=== PATIENT | male | born 1975 | race Two or more races ===

== ENCOUNTER 2022-02-25 05:33 | Emergency (ER) | payer BC, SELFPAY ==
[2022-02-25 05:45] VITALS: BP 144/72; PULSE 98; RESP 24; TEMP 36.8; O2SAT 95; BMI 34.7
[2022-02-25 08:02] VITALS: BP 140/85; PULSE 76; RESP 20; TEMP 36.7; O2SAT 97
--- NOTE | 2022-02-25 09:39 | ED.GENADULT ---
HPI - General Adult General Chief complaint: General Medical Stated complaint: hemmorroids & kidney stones Time Seen by Provider: 02/25/22 09:09 Source: patient Mode of arrival: ambulatory History of Present Illness HPI narrative: 46-year-old male with past medical history of hemorrhoids presenting to the ED complaining of acute on chronic painful hemorrhoids x a few days. Admits went to [facility] yesterday however LWT'd. Reports intermittent bleeding when using the bathroom, not at present. Has been using OTC medications. Denies fever, chills, abdominal pain, nausea, vomiting, hematuria/dysuria Onset (ago): day(s) Related Data Previous Rx's Medication Instructions Recorded hydrocortisone 1 % topical cream 1 appl MS DAILY #28.4 grams 02/25/22 with perineal applicator lidocaine 4 % topical cream 1 appl topical BID PRN pain #28 02/25/22 grams Allergies Allergy/AdvReac Type Severity Reaction Status Date / Time No Known Allergies Allergy Unverified 04/12/20 15:42 Review of Systems Review of Systems: Constitutional: No Fever, No Chills ENT/Mouth: No Ear Pain, No Nasal Congestion, No sore throat, No Rhinorrhea, No Swallowing Difficulty Cardiovascular: No Chest Pain, No SOB Respiratory: No Cough, No Sputum Gastrointestinal: No Nausea, No Vomiting, No Diarrhea, No Constipation, No Abdominal pain Genitourinary: + hemorrhoids, +intrmittent bleeding, No Dysuria, No Urinary Frequency, No Hematuria, No Urinary Incontinence/retention, No Urgency, No Flank Pain Musculoskeletal: No joint pain, No Myalgias Skin: No Skin Lesions, No rash Neuro: No Weakness, No Numbness, No Paresthesias Yes all other systems are reviewed and are negative Constitutional: Constitutional: Reports as per [facility] Past Medical History Attestation statement: The following information was validated with the patient. Social History Social History Advance Directives: No Advance Directives Information Provided: Yes Physical Exam ED Vital Signs: Vital Signs - 24 hr 02/25/22 05:45 02/25/22 08:02 Temperature 98.3 F 98.1 F Pulse Rate 98 76 Respiratory Rate 24 H 20 Blood Pressure 144/72 H 140/85 H Pulse Oximetry 95 97 Oxygen Delivery Method Room Air Room Air BMI result Body Mass Index 34.7 Const General: cooperative, healthy appearing and no acute distress Orientation/consciousness: patient oriented x3 Limitations: no limitations HENMT Head: Yes normal to inspection and Yes atraumatic Ears: hearing grossly normal bilaterally General nose exam: Normal external nose present Face and sinus: Yes normal facial exam Eyes General: appearance normal, both eyes and all related structures EOM: EOMs intact bilaterally Neck Neck: Yes normal visual inspection and Yes no meningeal signs Resp Effort & Inspection: normal respiratory effort and no respiratory distress Auscultation: clear to auscultation bilaterally Cardio Rate: regular rate Heart sounds: S1 normal heart sound present and S2 normal heart sound present GI Inspection: Yes normal to inspection Palpation (GI): Soft to palpation, nontender, no guarding and not rigid Other: + 3 large hemorrhoids noted on rectal exam which appear to be prolapsed internal hemorrhoids. No evidence of thrombosis, cellulitis or bleeding. Tender to palpation. No blood noted on rectal. Skin Rashes: no rashes Wounds: no wounds Neuro General: patient oriented x3, tone normal and no meningeal signs Gait exam (Neuro): Normal gait present Extrem General: Yes normal to inspection Medical Decision Making MDM Narrative Medical decision making narrative: 46-year-old female with a past medical history of anemia, asthma/COPD overlap syndrome, hypogammaglobulinemia, presenting to the ED complaining of asthma exacerbation since this morning. On exam vital signs stable, NAD, nontoxic appearing, physical exam as above with noted prolapsed internal hemorrhoids without evidence of thrombosis or infection Plan: Hydrocortisone/lidocaine, general surgery f/u Medical Records Medical records reviewed: Yes I reviewed the patient's medical records. Lab Data Lab results reviewed: Yes I reviewed the patient's lab results. Discharge Plan Discharge Clinical Impression: Acute hemorrhoid Patient Disposition: Home, Self-Care Instructions: Hemorrhoids (ED), Sitz Bath (DC) Additional Instructions: You have hemorrhoids, topical hydrocortisone cream will help with inflammation, lidocaine will help with pain. Mix 1:1 solution and then apply to her hemorrhoids as prescribed. You need to follow-up with general surgery. You also need to perform Sitz baths at home for symptomatic improvement. If symptoms persist or worsen/pain becomes unbearable return to the emergency department Prescriptions: New hydrocortisone 1 % cream with perineal applicator 1 appl MS DAILY Qty: 28.4 0RF lidocaine 4 % cream 1 appl topical BID PRN (Reason: pain) Qty: 28 0RF Referrals: Soy Ogden MD [Physician] - Stand Alone Forms: Work/School Release Interventions: ED Discharge Assessment Last Done: 02/25/22 09:57 Discharge Date/Time: 02/25/22 09:58
[2022-02-25] MEDS: Ibuprofen 600 MG TABLET PO (09:55)
[2022-02-25] MEDS: Lidocaine 4 % Cream KIT 1 APPL TOPICAL (09:56)
== END 2022-02-25 09:58 | disposition home or self-care (01) ==
PROVIDERS: Emergency Provider Emergency Medicine Emergency Medical Services
DX: K64.8 Other hemorrhoids (principal); J45.901 Unspecified asthma with (acute) exacerbation
CPT/HCPCS: 99283; 99284

== ENCOUNTER 2022-08-20 23:54 | Emergency (ER) | payer BC, SELFPAY ==
[2022-08-21 00:07] VITALS: BP 153/98; PULSE 98; RESP 22; TEMP 37.3; O2SAT 98; BMI 34.9
--- NOTE | 2022-08-21 00:10 | PC.NURSE ---
pt resting on stretcher, appears uncomfortable, pt states he cannot sit or lay comfortably anymore due to his hemmorhoid
[2022-08-21] MEDS: Lidocaine HCl Viscous 2 % 15 ML SOLUTION MUCOUS MEM (00:31)
--- NOTE | 2022-08-21 00:33 | ED_ITS ---
HPI - General Adult General Chief complaint: General Medical Stated complaint: back pain Time Seen by Provider: 08/20/22 23:57 Source: patient Mode of arrival: ambulatory Limitations: no limitations History of Present Illness HPI narrative: This is a 46-year-old male presenting to the emergency department with complaints of rectal pain and lower back pain x3 weeks. Patient reports his rectum is hurting has a history of hemorrhoids and he believes he has a large hemorrhoid to his rectum has tried [id number] medications with no relief. He tells me it is extremely painful particularly to the touch in after he has bowel movements. Tells me sometimes he notes some blood however none today. Patient reporting bilateral lower lumbar pain sparing the midline. Denies saddle paresthesias, weakness, blunt trauma, numbness, tingling, urinary/bowel incontinence/retention, IV drug abuse, steroid use. Patient also denies fevers, chills, chest pain, shortness of breath, nausea, vomiting, abdominal pain. He tells me the rectal pain is debilitating. Related Data Previous Rx's Medication Instructions Recorded hydrocortisone 1 % topical cream 1 appl RI DAILY #28.4 grams 02/25/22 with perineal applicator lidocaine 4 % topical cream 1 appl topical BID PRN pain #28 02/25/22 grams cyclobenzaprine 10 mg tablet 10 mg PO BEDTIME PRN muscle spasm 08/21/22 #7 tabs lidocaine 4 % topical gel 1 appl topical TID PRN pain #30 08/21/22 grams lidocaine 5 % topical patch 1 patch topical DAILY PRN pain #15 08/21/22 ea morphine 15 mg immediate release 15 mg PO Q8H PRN pain #10 tabs 08/21/22 tablet pramoxine 1 % topical foam 1 appl RI BID #15 grams 08/21/22 (Proctofoam) Allergies Allergy/AdvReac Type Severity Reaction Status Date / Time No Known Allergies Allergy Unverified 04/12/20 15:42 Review of Systems Review of Systems: Constitutional : No Weight loss, No Fever, No Chills, ENT/Mouth : No Hearing loss, No Ear Pain, No Nasal Congestion, No Sinus Pain, No Hoarseness, No sore throat, No Rhinorrhea, No Swallowing Difficulty Cardiovascular : No Chest Pain, No SOB Respiratory : No Cough, No Dyspnea Gastrointestinal : No Nausea, No Vomiting, No Diarrhea, No abdominal Pain, No Hematochezia, No Melena, + rectal pain Genitourinary : No Dysuria, No Urinary Frequency, No Hematuria, No Urinary Incontinence, Musculoskeletal : positive back pain Skin : No Skin Lesions, No rash Neuro : No Weakness, No Numbness, No Paresthesias, no loss of bowel or bladder incontinence, no saddle anesthesia Yes all other systems are reviewed and are negative [facility] Past Medical History Attestation statement: The following information was validated with the patient. Source: old records reviewed and nursing notes reviewed Physical Exam ED Vital Signs: Vital Signs - 24 hr 08/21/22 00:07 Temperature 99.2 F Pulse Rate 98 Respiratory Rate 22 H Blood Pressure 153/98 H Pulse Oximetry 98 Oxygen Delivery Method Room Air BMI result Body Mass Index 34.9 vss Appearance: Alert.? Oriented X3.? No acute distress.? Head: Normocephalic, atraumatic, no step-offs or deformities Eyes: Pupils equal, round and reactive to light.? CVS: Normal heart rate and rhythm.? Pulses normal.? Respiratory: No respiratory distress.? Breath sounds normal.? Abdomen: Soft and nontender.? Skin: Skin warm and dry.? Normal skin color.? Normal skin turgor.? Extremities: No lower extremity edema.? No calf ttp. 5/5 strength to bilateral upper and lower extremities Back: No midline tenderness, no C-spine tenderness, full range of motion, no CVA tenderness bilaterally. Bilateral lumbar lower paraspinous muscle tendern ess, no midline tenderness. Rectal exam: Normal sphincter tone, large thrombosed hemorrhoid noted at the to p.m. position painful to the touch, with a bluish hue Neuro: Oriented X 3.? No motor deficit.? No sensory deficit. CN 2-12 intact . No saddle paresthesias. Ambulating with steady gait normal coordination. Course Reevaluation(s) Reevaluation #1: Elliptical incision was made at this site, small blood with possible small blood expressed. This procedure was done by my attending Dr. Aimee martinez/ my assistance, Dr. Adams also helped. Patient reported significant pain. Patient will likely have to see General surgery for this. Will apply topical lidocaine and send him home with the same. Back pain without red flag symptoms, likely muscle spasms to lumbar region. Educated patient on diagnosis and treatment plan, answered all question, patient verbalizes understanding. At this time patient will be discharged home, advised to return with new or worsening symptoms. Educated on worrisome signs and symptoms and when to return. At this time I feel comfortable discharge home. Time: 00:40 Reevaluation #2: This case will be signed out to estuardo Adams, pending re-evaluation and improvement in symptoms. Time: 00:41 Medical Decision Making Medical Decision Making [facility] Narrative: 0036 46-year-old male presents with lower back pain and rectal pain x3 weeks. Physical examination significant for normal sphincter tone, large thrombosed hemorrhoid noted at the to p.m. position painful to the touch, with a bluish hue. He does have bilateral lower lumbar tenderness. No saddle paresthesias, no focal neuro deficits. Normal ambulation. History and physical examination consistent with thrombosed hemorrhoid. Back pain likely muscle spasms. Unlikely cauda equina, epidural abscess, cord compression. Plan at this time is to do an elliptical incision to the hemorrhoid. No need for back imaging at this time, no trauma no focal neuro deficits. Will give morphine for pain, Lidoderm topically. Differential Diagnosis Differential Diagnoses: The differential diagnosis associated with the presentation includes History and physical examination consistent with thrombosed hemorrhoid. Back pain likely muscle spasms. Unlikely cauda equina, epidural abscess, cord compression. Admission/Observation Consideration of admission/observation: Escalation of care including admission/observation considered Consult Healthcare Provider Management of the patient was discussed with: Restaurant Team Member (My attendings Dr. Adams and Dr. Yu ) Prescription Management I considered prescription management with: Pain Medication Core Measures AMI core measures followed: Yes Measure exclusions: not indicated Critical Care Time Critical Care Time Critical Care Time: No Discharge Plan Discharge Clinical Impression: External hemorrhoid, Lumbar back pain Patient Disposition: Home, Self-Care Instructions: Hemorrhoids (ED), Back Pain (ED), Hemorrhoidectomy (DC) Additional Instructions: Take your medications as prescribed. If you were prescribed antibiotics today, it is important that you take your medication to their entirety, do not skip any doses, do not finish them early. Follow-up with your primary care provider this week. Please call general surgery to make an appointment with them as soon as possible. Return to the emergency department with new or worsening symptoms. Such as fevers, chills, chest pain, shortness of breath, nausea, vomiting, dizziness, headache, vision changes, lethargy In case of emergency call 911 Prescriptions: New pramoxine [Proctofoam] 1 % foam 1 appl RI BID Qty: 15 0RF morphine 15 mg tablet 15 mg PO Q8H PRN (Reason: pain) Qty: 10 0RF Rx Instructions: Partial Fill upon patient request. lidocaine 4 % gel 1 appl topical TID PRN (Reason: pain) Qty: 30 0RF cyclobenzaprine 10 mg tablet 10 mg PO BEDTIME PRN (Reason: muscle spasm) Qty: 7 0RF lidocaine 5 % adhesive patch,medicated 1 patch topical DAILY PRN (Reason: pain) Qty: 15 0RF Rx Instructions: leave on most painful area for up to 12 hrs No Action hydrocortisone 1 % cream with perineal applicator 1 appl RI DAILY Qty: 28.4 0RF lidocaine 4 % cream 1 appl topical BID PRN (Reason: pain) Qty: 28 0RF Referrals: [facility] [place] General Surgeons [Provider Group] - 1 day Physician,None [Primary Care Provider] - 2 days Stand Alone Forms: Work/School Release
[2022-08-21] MEDS: Morphine Sulfate 10 MG/ML CARTRIDGE 4 MG IM (00:35)
[2022-08-21] MEDS: Lidocaine HCl 1 % MPF 5 ML VIAL 2 ML SUBCUT ×3 (00:43)
[2022-08-21] MEDS: Lidocaine HCl 2 % Urojet 10 ML JEL.PF.APP TOPICAL (02:19)
[2022-08-21] MEDS: oxyCODONE HCl Immed Release 5 MG TABLET 10 MG PO (02:19)
--- NOTE | 2022-08-21 02:58 | PC.NURSE ---
Late entry: This RN and MD entered room to repeat fixing hemmorhoid. Pt was medicated with urojet lidocaine and injectable lidocaine via MD. (as reflected in the MAR). Pt tolerated procedure fairly, uncomfortable at some points. Pt stated he felt immediate relief once MD was complete. Pt provided with ice pack and abd pad to control bleed.
== END 2022-08-21 03:02 | disposition home or self-care (01) ==
PROVIDERS: Emergency Provider Internal Medicine
DX: K64.4 Residual hemorrhoidal skin tags (principal); M54.50 Low back pain, unspecified; Z79.899 Other long term (current) drug therapy
CPT/HCPCS: 96372; 99283; 99284; J2270

== ENCOUNTER 2022-08-24 23:07 | Emergency (ER) | payer BC, SELFPAY ==
[2022-08-24 23:21] VITALS: BP 136/82; PULSE 117; RESP 20; TEMP 36.8; O2SAT 99; BMI 34.9
--- OUTSIDE RECORDS SUMMARY | 2022-08-24 23:35 | XMS_ITS | Continuity of Care Document ---
:1975 Author Organization [facility] Address [address] [place] [address]- Care Team Providers Name Role Phone Not on Staff, PCP Primary Care Physician Unavailable [place] [facility] [place] 10/07/20 - 10/14/20 [facility] [address], [place] [address] Attending Physician: Hermelinda Chin MD Referring Physician: Kimberley Claudio MD Allergies, Adverse Reactions, Alerts Substance Reaction Severity Status NKA Active Medications ivermectin 3 mg oral tablet See Instructions, 7 tablet By Mouth Once and again in 1-2 weeks., # 14 tablet, 0 Refills, Soft Stop,10/07/20 11:22:00 EDT, [id number], Partial fill upon patient request if the prescription is for a schedule II opioid drug., 172.5, cm, ... Start Date: 10/07/20 Status: Orderedpermethrin 5% topical cream 1 application, Topically, Daily, Apply to skin from head to soles. Leave on 8-10 hours then wash off, # 60 Gm, 2 Refills, Soft Stop, 10/07/20 11:26:00 EDT, Lotion, [id number], Partial fill uponpatient request if the prescription is for a sche... Start Date: 10/07/20 Status: Ordered Vital Signs Most recent to oldest [Reference Range]: 1 Height 172.5 cm (10/07/20 10:58 AM) Weight 103.2 kg (10/07/20 10:58 AM) Oxygen Saturation [94-100 %] 100 % (10/07/20 10:58 AM) Pulse Rate [55-90 bpm] 86 bpm (10/07/20 10:58 AM) Body Mass Index [18.5-24.99] 34.68 *>HHI* (10/07/20 10:58 AM) Blood Pressure [90-138/55-84 mm Hg] 118/73 mm Hg (10/07/20 10:58 AM) Respiratory Rate [16-30 br/min] 17 br/min (10/07/20 10:58 AM) Temperature [96.8-100.4 DegF] 97.1 DegF (10/07/20 10:58 AM) Mode of Delivery (Oxygen) Room air (10/07/20 10:58 AM) Blood pressure sites Arm, right (10/07/20 10:58 AM) Temperature Route Temporal (10/07/20 10:58 AM) Dry Weight 103.2 kg (10/07/20 10:58 AM) Weight Obtained Via Standing scale (10/07/20 10:58 AM) Dry Weight Obtained Via Standing scale (10/07/20 10:58 AM)
--- OUTSIDE RECORDS SUMMARY | 2022-08-24 23:35 | XMS_ITS | Continuity of Care Document ---
:[address] [facility] Address [address] [place] [address]- Care Team Providers Name Role Phone Lesli Frank NP Primary Care Physician Encounter [facility] Date(s): 12/26/20 - 01/25/21 [facility] [address] [place] [address]- Allergies, Adverse Reactions, Alerts Substance Reaction Severity Status NKA Active Medications atorvastatin 40 mg oral tablet 1 tablet = 40 mg, By Mouth, Daily at bedtime, # 30 tablet, 2 Refills, Maintenance, 11/09/20 13:59:00EDT, Tablet, [facility] #[id number], Partial fill upon patient request if the prescription is for a schedule II opioid drug., 172.5, cm, 11/09/20 13:18:00... Start Date: 11/09/20 Status: Ordered Problem List Condition Effective Dates Status Health Status Informant Anemia(Confirmed) Active Dyslipidemia(Confirmed) Active Rash(Confirmed) Active Hx of cocaine abuse(Confirmed) Active Rectal bleeding(Confirmed) Active Snoring(Confirmed) Active Social History Social History Type Response Smoking Status 5-9 cigarettes (between 1/4 to 1/2 pack)/day in last 30 days; Other: started 16yo, quit for about 1.5yrs; entered on: 10/30/20 Sex
--- OUTSIDE RECORDS SUMMARY | 2022-08-24 23:35 | XMS_ITS | Continuity of Care Document ---
:1975 Author Organization [facility] Address [address] [place] [address]- Care Team Providers Name Role Phone Lesli Frank NP Primary Care Physician Encounter [facility] [place] Date(s): 10/21/20 - 11/20/20 [facility] [address], [place] [address] Attending Physician: Mauro Salazar Admitting Physician: AdmtrMauro Referring Physician: AdmtrMauro Allergies, Adverse Reactions, Alerts Substance Reaction Severity Status NKA Active Medications atorvastatin 40 mg oral tablet 1 tablet = 40 mg, By Mouth, Daily at bedtime, # 30 tablet, 2 Refills, Maintenance, 11/09/20 13:59:00EDT, Tablet, [id number], Partial fill upon patient request [...]
--- OUTSIDE RECORDS SUMMARY | 2022-08-24 23:35 | XMS_ITS | Continuity of Care Document ---
:1975 Author Organization [facility] Address [address] [place] [address]- Care Team Providers Name Role Phone Not on Staff, PCP Primary Care Physician Unavailable Encounter [facility] Date(s): 04/28/20 - 05/28/20 [facility] [address] [place] [address]- [facility] Attending Physician: Kimberley Claudio MD Allergies, Adverse Reactions, Alerts Substance Reaction Severity Status NKA Active
--- OUTSIDE RECORDS SUMMARY | 2022-08-24 23:35 | XMS_ITS | Continuity of Care Document ---
:1975 Author Organization [facility] Address [address] [place] [address]- Care Team Providers Name Role Phone Lesli Frank NP Primary Care Physician [place] [facility] [place]21 - 03/07/21 [facility] [address] [place] [address]- Allergies, Adverse Reactions, Alerts Substance Reaction Severity [...]
--- OUTSIDE RECORDS SUMMARY | 2022-08-24 23:35 | XMS_ITS | Continuity of Care Document ---
:1975 Author Organization [facility] Address [address] [place] [address]- Care Team Providers Name Role Phone Lesli Frank NP Primary Care Physician Encounter [facility] [place] Date(s): 02/05/21 - 03/07/21 [facility] [address] [place], [place] [address] Attending Physician: Mauro Salazar Admitting Physician: AdmtrMauro Referring Physician: Admtr, ArJeevan Allergies, Adverse Reactions, Alerts Substance Reaction Severity Status NKA Active Medications atorvastatin 40 mg oral tablet 1 tablet = 40 mg, By Mouth, Daily at bedtime, # 30 tablet, 2 Refills, Maintenance, 11/09/20 13:59:00EDT, Tablet, [facility]/pharmacy #[id number], Partial fill upon patient request if [...]
--- OUTSIDE RECORDS SUMMARY | 2022-08-24 23:35 | XMS_ITS | Continuity of Care Document ---
:1975 Author Organization [facility] Address [address] [place] [address]- Care Team Providers Name Role Phone Lesli Frank NP Primary Care Physician Encounter [facility] [place] Date(s): 11/15/20 - 12/15/20 [facility] [address] [place] [address]- Allergies, Adverse Reactions, Alerts Substance Reaction Severity Status NKA Active Medications atorvastatin 40 mg oral tablet 1 tablet = 40 mg, By Mouth, Daily at bedtime, # 30 tablet, 2 Refills, Maintenance, 11/09/20 13:59:00EDT, Tablet, [facility]/pharmacy #[id number], Partial fill upon patient request [...]
--- OUTSIDE RECORDS SUMMARY | 2022-08-24 23:35 | XMS_ITS | Continuity of Care Document ---
:1975 Author Organization [facility] Address [address] [place] [address]- Care Team Providers Name Role Phone Lesli Frank NP Primary Care Physician Encounter [facility] [place] Date(s): 12/06/20 - 01/05/21 [facility] [address] [place] [address]- Allergies, Adverse Reactions, Alerts Substance Reaction Severity Status NKA Active Medications atorvastatin 40 mg oral tablet 1 tablet = 40 mg, By Mouth, Daily at bedtime, # 30 tablet, 2 Refills, Maintenance, 11/09/20 13:59:00EDT, Tablet, [facility]/pharmacy #[id number], Partial fill upon patient request if [...]
--- OUTSIDE RECORDS SUMMARY | 2022-08-24 23:35 | XMS_ITS | Continuity of Care Document ---
:1975 Author Organization [facility] Address [address] [place] [address]- Care Team Providers Name Role Phone Lesli Frank NP Primary Care Physician Encounter [facility] [place] Date(s): 12/23/20 - 01/22/21 [facility] [address] [place] [address]- Allergies, Adverse Reactions, Alerts Substance Reaction Severity Status NKA Active Medications atorvastatin 40 mg oral tablet 1 tablet = 40 mg, By Mouth, Daily at bedtime, # 30 tablet, 2 Refills, Maintenance, 11/09/20 13:59:00EDT, Tablet, [facility]/pharmacy #[id number], Partial fill upon patient request if [...]
--- OUTSIDE RECORDS SUMMARY | 2022-08-24 23:35 | XMS_ITS | Continuity of Care Document ---
:1975 Author Organization [facility] Address [address] [place] [address]- Care Team Providers Name Role Phone Lesli Frank NP Primary Care Physician [place] [facility] [place]): [place] 12/09/20 [facility] [address] [place] [address]- Attending Physician: Admtr, Mauro Admitting Physician: Admtr, Ar8 Referring Physician: Admtr, Ar8 Allergies, Adverse Reactions, Alerts Substance Reaction Severity [...]
--- OUTSIDE RECORDS SUMMARY | 2022-08-24 23:35 | XMS_ITS | Continuity of Care Document ---
:1975 Author Organization [facility] Address [address] [place] [address]- Care Team Providers Name Role Phone Not on Staff, PCP Primary Care Physician Unavailable Encounter [facility] [place] Date(s): 05/13/20 - 05/20/20 [facility] [address] [place] [address]- [facility] Attending Physician: Kimberley Claudio MD Allergies, Adverse Reactions, Alerts Substance Reaction Severity Status NKA Active Medications nystatin-triamcinolone topical 187913 u/gm-0.1% cream 1 application, Topically, 2 times a day, for 14 days, apply to affected skin, # 30 Gm, 0 Refills, Acute 05/27/20 12:25:00 EST, 05/13/20 12:25:00 EDT, [id number], 1 application Topically 2 timesa day,x14 days,Instr:apply to affected skin, 172.... Start Date: 05/13/20 Stop Date: 05/27/20 Status: Ordered Vital Signs Most recent to oldest [Reference Range]: 1 Height 172.5 cm (05/13/20 12:15 PM) Oxygen Saturation [94-100 %] 100 % (05/13/20 12:15 PM) Pulse Rate [55-90 bpm] 77 bpm (05/13/20 12:15 PM) Blood Pressure [90-138/55-84 mm Hg] 112/68 mm Hg (05/13/20 12:15 PM) Respiratory Rate [16-30 br/min] 20 br/min (05/13/20 12:15 PM) Temperature [96.8-100.4 DegF] 97.3 DegF (05/13/20 12:15 PM) Mode of Delivery (Oxygen) Room air (05/13/20 12:15 PM) Blood pressure sites Arm, right (05/13/20 12:15 PM) Temperature Route Temporal (05/13/20 12:15 PM)
--- OUTSIDE RECORDS SUMMARY | 2022-08-24 23:35 | XMS_ITS | Continuity of Care Document ---
:1975 Author Organization [facility] Address [address] [place] [address]- Care Team Providers Name Role Phone Not on Staff, PCP Primary Care Physician Unavailable En[place] [facility] [place](s): 10/21/20 - 10/28/20 [facility] [address], [place] [address] Encounter Diagnosis Rash and nonspecific skin eruption (Discharge Diagnosis) - 10/21/20 Attending Physician: Kimberley Claudio MD Allergies, Adverse Reactions, Alerts Substance Reaction Severity Status NKA Active Medications hydrocortisone 1% topical cream 1 application, Topically, 2 times a day, for 14 days, # 60 Gm, 0 Refills, Acute 11/04/20 15:22:00 EDT, 10/21/20 15:22:00 EDT, Cream, [id number], Partial fill upon patient request if the prescription is for a schedule II opioid drug., 1 applica... Start Date: 10/21/20 Stop Date: 11/04/20 Status: Orderedivermectin 3 mg oral tablet See Instructions, 7 tablet By Mouth Once and again in 1-2 weeks., # 14 tablet, 0 Refills, Soft Stop,10/07/20 11:22:00 EDT, [id number], Partial fill upon patient request if the prescription is for a schedule II opioid drug., 172.5, cm, 10/07/2... Start Date: 10/07/20 Status: Orderedpermethrin 5% topical cream 1 application, Topically, Daily, Apply to skin from head to soles. Leave on 8-10 hours then wash off, # 60 Gm, 2 Refills, Soft Stop, 10/07/20 11:26:00 EDT, Lotion, [id number], Partial fill uponpatient request if the prescription is for a sche... Start Date: 10/07/20 Status: Ordered Problem List Diagnosis Diagnosis Type Effective Dates Health Clinical Infor mant Status Service Rash and Discharge 10/21/20 nonspecific skin Diagnosis eruption Vital Signs Most recent to oldest [Reference Range]: 1 Height 172.5 cm (10/21/20 1:49 PM) Oxygen Saturation [94-100 %] 99 % (10/21/20 1:49 PM) Pulse Rate [55-90 bpm] 76 bpm (10/21/20 1:49 PM) Blood Pressure [90-138/55-84 mm Hg] 116/72 mm Hg (10/21/20 1:49 PM) Respiratory Rate [16-30 br/min] 18 br/min (10/21/20 1:49 PM) Temperature [96.8-100.4 DegF] 98.4 DegF (10/21/20 1:49 PM) Mode of Delivery (Oxygen) Room air (10/21/20 1:49 PM) Blood pressure sites Arm, right (10/21/20 1:49 PM) Temperature Route Temporal (10/21/20 1:49 PM)
--- OUTSIDE RECORDS SUMMARY | 2022-08-24 23:35 | XMS_ITS | Continuity of Care Document ---
:1975 Author Organization [facility] Address [address] [place] [address]- Care Team Providers Name Role Phone Lesli Frank NP Primary Care Physician [place] [facility] [place] 12/23/20 - 01/22/21 [facility] [address] [place] [address]- Allergies, Adverse Reactions, Alerts Substance Reaction Severity Status NKA Active Medications atorvastatin 40 mg oral tablet 1 tablet = 40 mg, By Mouth, Daily at bedtime, # 30 tablet, 2 Refills, Maintenance, 11/09/20 13:59:00EDT, Tablet, [facility]/pharm[facility] #[id number], Partial fill upon patient request if [...]
--- OUTSIDE RECORDS SUMMARY | 2022-08-24 23:35 | XMS_ITS | Continuity of Care Document ---
:1975 Author Organization [facility] Address [address] [place] [address]- Care Team Providers Name Role Phone Lesli Frank NP Primary Care Physician Encounter [facility] Date(s): 12/26/20 - 01/25/21 [facility] [address] [place] [address]- Allergies, Adverse Reactions, Alerts Substance Reaction Severity [...]
--- OUTSIDE RECORDS SUMMARY | 2022-08-24 23:35 | XMS_ITS | Continuity of Care Document ---
:1975 Author Organization [facility] Address [address] [place] [address]- Care Team Providers Name Role Phone Lesli Frank NP Primary Care Physician Encounter [facility] Date(s): 10/11/20 - 11/10/[address] [address] Allergies, Adverse Reactions, Alerts Substance Reaction Severity Status NKA Active Medications atorvastatin 40 mg oral tablet 1 tablet = 40 mg, By Mouth, Daily at bedtime, # 30 tablet, 2 Refills, Maintenance, 11/09/20 13:59:00EDT, Tablet, [facility]/pharmacy #[id number], Partial fill upon patient request if the prescription is for a schedule II opioid drug., 172.5, cm, 11/09/20 13:18:00... Start Date: 11/09/20 Status: Ordered Problem List Condition Effective Dates Status Health Status Informant Anemia(Confirmed) Active Rash(Confirmed) Active Hx of cocaine abuse(Confirmed) Active Rectal bleeding(Confirmed) Active Social History Social History Type Response Smoking Status 5-9 cigarettes (between 1/4 to 1/2 pack)/day in last 30 days; Other: started 16yo, quit for about 1.5yrs; entered on: 10/30/20 Sex
--- OUTSIDE RECORDS SUMMARY | 2022-08-24 23:35 | XMS_ITS | Continuity of Care Document ---
:1975 Author Organization [facility] Address [address] [place] [address]- Care Team Providers Name Role Phone Lesli Frank NP Primary Care Physician Encounter [facility] Date(s): 10/09/20 - 11/08/20 [facility] [address] [place], [place] [address] Allergies, Adverse Reactions, Alerts Substance Reaction Severity Status NKA Active Problem List Condition Effective Dates Status Health Status Informant Anemia(Confirmed) Active Rash(Confirmed) Active Hx of cocaine abuse(Confirmed) Active Rectal bleeding(Confirmed) Active Social History Social History Type Response Smoking Status 5-9 cigarettes (between 1/4 to 1/2 pack)/day in last 30 days; Other: started 16yo, quit for about 1.5yrs; entered on: 10/30/20 Sex
--- OUTSIDE RECORDS SUMMARY | 2022-08-24 23:35 | XMS_ITS | Continuity of Care Document ---
:1975 Author Organization [facility] Address [address] [place] [address]- Care Team Providers Name Role Phone Lesli Frank NP Primary Care Physician [id number] Date(s): 11/09/20 - 11/16/20 [facility] [address] [place] [address]- Encounter Diagnosis Well adult exam (Discharge Diagnosis) - 11/11/20 Dyslipidemia (Discharge Diagnosis) - 11/11/20 Anemia (Discharge Diagnosis) - 11/11/20 Rash (Discharge Diagnosis) - 11/11/20 Rectal bleeding (Discharge Diagnosis) - 11/11/20 Snoring (Discharge Diagnosis) - 11/11/20 Elevated blood sugar (Discharge Diagnosis) - 11/11/20 Attending Physician: Lesli Frank NP Referring Physician: Nino Priest MD Allergies, Adverse Reactions, Alerts Substance Reaction Severity Status NKA Active Medications atorvastatin 40 mg oral tablet 1 tablet = 40 mg, By Mouth, Daily at bedtime, # 30 tablet, 2 Refills, Maintenance, 11/09/20 13:59:00EDT, Tablet, [facility]/pharmacy #[id number], Partial fill upon patient request if the prescription is for a schedule II opioid drug., 172.5, cm, 11/09/20 13:18:00... Start Date: 11/09/20 Status: Ordered Problem List Condition Effective Dates Status Health Status Informant Anemia(Confirmed) Active Dyslipidemia(Confirmed) Active Rash(Confirmed) Active Hx of cocaine abuse(Confirmed) Active Rectal bleeding(Confirmed) Active Snoring(Confirmed) Active Diagnosis Diagnosis Type Effective Dates Health Clinical Infor mant Status Service Well adult exam Discharge 11/11/20 Diagnosis Dyslipidemia Discharge 11/11/20 Diagnosis Anemia Discharge 11/11/20 Diagnosis Rash Discharge 11/11/20 Diagnosis Rectal bleeding Discharge 11/11/20 Diagnosis Snoring Discharge 11/11/20 Diagnosis Elevated blood Discharge 11/11/20 sugar Diagnosis Vital Signs Most recent to oldest [Reference Range]: 1 Height 172.5 cm (11/09/20 1:18 PM) Weight 103.7 kg (11/09/20 1:18 PM) Oxygen Saturation [94-100 %] 98 % (11/09/20 1:18 PM) Pulse Rate [55-90 bpm] 78 bpm (11/09/20 1:18 PM) Body Mass Index [18.5-24.99] 34.85 *>HHI* (11/09/20 1:18 PM) Blood Pressure [90-138/55-84 mm Hg] 110/72 mm Hg (11/09/20 1:18 PM) Temperature [96.8-100.4 DegF] 98.0 DegF (11/09/20 1:18 PM) Blood pressure sites Arm, right (11/09/20 1:18 PM) Temperature Route Oral (11/09/20 1:18 PM) Weight Obtained Via Standing scale (11/09/20 1:18 PM) Social History Social History Type Response Smoking Status 5-9 cigarettes (between 1/4 to 1/2 pack)/day in last 30 days; Other: started 16yo, quit for about 1.5yrs; entered on: 10/30/20 Sex
--- OUTSIDE RECORDS SUMMARY | 2022-08-24 23:35 | XMS_ITS | Continuity of Care Document ---
:1975 Author Organization [facility] Address [address] [place] [address]- Care Team Providers Name Role Phone Lesli Frank NP Primary Care Physician Encounter [facility] [place] Date(s): 02/05/21 - 02/12/21 [facility] [address] [place], [place] [address] Encounter Diagnosis Foreign body of left eye (Discharge Diagnosis) - 02/05/21 Attending Physician: Kimberley Claudio MD Referring Physician: Lesli Frank NP Allergies, Adverse Reactions, Alerts Substance Reaction Severity Status NKA Active Medications atorvastatin 40 mg oral tablet 1 tablet = 40 mg, By Mouth, Daily at bedtime, # 30 tablet, 2 Refills, Maintenance, 11/09/20 13:59:00EDT, Tablet, [facility]/pharmacy #[id number], Partial fill upon patient request if the prescription is for a schedule II opioid drug., 172.5, cm, 11/09/20 13:18:00... Start Date: 11/09/20 Status: Ordered Problem List Condition Effective Dates Status Health Status Informant Anemia(Confirmed) Active Dyslipidemia(Confirmed) Active Rash(Confirmed) Active Hx of cocaine abuse(Confirmed) Active Rectal bleeding(Confirmed) Active Snoring(Confirmed) Active Diagnosis Diagnosis Type Effective Dates Health Status Clinical In formant Service Foreign body of Discharge 02/05/21 left eye Diagnosis Vital Signs Most recent to oldest [Reference Range]: 1 Height 172.5 cm (02/05/21 4:14 PM) Weight 102.4 kg (02/05/21 4:14 PM) Oxygen Saturation [94-100 %] 100 % (02/05/21 4:14 PM) Pulse Rate [55-90 bpm] 76 bpm (02/05/21 4:14 PM) Body Mass Index [18.5-24.99] 34.41 *>HHI* (02/05/21 4:14 PM) Blood Pressure [90-138/55-84 mm Hg] 119/75 mm Hg (02/05/21 4:14 PM) Temperature [96.8-100.4 DegF] 97.1 DegF (02/05/21 4:14 PM) Mode of Delivery (Oxygen) Room air (02/05/21 4:14 PM) Blood pressure sites Arm, right (02/05/21 4:14 PM) Temperature Route Temporal (02/05/21 4:14 PM) Dry Weight 102.4 kg (02/05/21 4:14 PM) Weight Obtained Via Standing scale (02/05/21 4:14 PM) Dry Weight Obtained Via Standing scale (02/05/21 4:14 PM) Social History Social History Type Response Smoking Status 5-9 cigarettes (between 1/4 to 1/2 pack)/day in last 30 days; Other: started 16yo, quit for about 1.5yrs; entered on: 10/30/20 Sex
--- OUTSIDE RECORDS SUMMARY | 2022-08-24 23:35 | XMS_ITS | Continuity of Care Document ---
:1975 Author Organization [facility] Address [address] [place] [address]- Care Team Providers Name Role Phone Lesli Frank NP Primary Care Physician [place] [facility] [place] 10[place]20 - 11/06/20 [facility] [address], [place] [address] Encounter Diagnosis Initial patient encounter (Discharge Diagnosis) - 10/30/20 Rash (Discharge Diagnosis) - 10/30/20 Hx of cocaine abuse (Discharge Diagnosis) - 10/30/20 Anemia (Discharge Diagnosis) - 11/01/20 Rectal bleeding (Discharge Diagnosis) - 11/01/20 Attending Physician: Lesli Frank NP Allergies, Adverse Reactions, Alerts Substance Reaction Severity Status NKA Active Medications No Known Medications Problem List Condition Effective Dates Status Health Status Informant Anemia(Confirmed) Active Rash(Confirmed) Active Hx of cocaine abuse(Confirmed) Active Rectal bleeding(Confirmed) Active Diagnosis Diagnosis Type Effective Dates Health Status Clinical In formant Service Initial patient Discharge 10/30/20 encounter Diagnosis Rash Discharge 10/30/20 Diagnosis Hx of cocaine Discharge 10/30/20 abuse Diagnosis Anemia Discharge 11/01/20 Diagnosis Rectal bleeding Discharge 11/01/20 Diagnosis Procedures Procedure Date Related Diagnosis Body Site Status History of kidney stone1 Com pleted 1Procedure to break up Vital Signs Most recent to oldest [Reference Range]: 1 Height 172.5 cm (10/30/20 10:27 AM) Social History Social History Type Response Smoking Status 5-9 cigarettes (between 1/4 to 1/2 pack)/day in last 30 days; Other: started 16yo, quit for about 1.5yrs; entered on: 10/30/20 Sex
--- NOTE | 2022-08-25 00:16 | ED_ITS ---
HPI - Male Genitourinary General Chief complaint: General Medical Stated complaint: lower back pain Time Seen by Provider: 08/25/22 00:11 Source: patient Mode of arrival: ambulatory Limitations: no limitations History of Present Illness HPI Narrative: Patient with external hemorrhoids was seen here on 08/21 for pain incision was made comes back as patient is still having pain in the hemorrhoid area patient is supposed to see a surgeon next week Related Data Previous Rx's Medication Instructions Recorded hydrocortisone 1 % topical cream 1 appl VA DAILY #28.4 grams 02/25/22 with perineal applicator lidocaine 4 % topical cream 1 appl topical BID PRN pain #28 02/25/22 grams cyclobenzaprine 10 mg tablet 10 mg PO BEDTIME PRN muscle spasm 08/21/22 #7 tabs lidocaine 4 % topical gel 1 appl topical TID PRN pain #30 08/21/22 grams lidocaine 5 % topical patch 1 patch topical DAILY PRN pain #15 08/21/22 ea morphine 15 mg immediate release 15 mg PO Q8H PRN pain #10 tabs 08/21/22 tablet pramoxine 1 % topical foam 1 appl VA BID #15 grams 08/21/22 (Proctofoam) morphine 15 mg immediate release 15 mg PO Q8H PRN pain #10 tabs 08/25/22 tablet Allergies Allergy/AdvReac Type Severity Reaction Status Date / Time No Known Allergies Allergy Unverified 04/12/20 15:42 Review of Systems Review of Systems: Yes all other systems are reviewed and are negative [facility] Social History Social History Advance Directives: No Physical Exam Vital Signs: Vital Signs: Last Vital Signs Temp 98.2 F 08/24/22 23:21 Pulse 117 H 08/24/22 23:21 Resp 20 08/24/22 23:21 BP 136/82 08/24/22 23:21 Pulse Ox 99 08/24/22 23:21 O2 Del Method 08/24/22 23:21 BMI result Body Mass Index 34.9 Appearance: Alert. Oriented X3. Eyes: PERRLA, No Nystagmus ENT: Pharynx normal. Oral Mucosa moist Neck: Normal inspection. Neck supple. CVS: Normal heart rate and rhythm. Pulses normal. Respiratory: No respiratory distress. Abdomen: Soft and nontender. Bowel sounds are present, rectum; external prolapsed hemorrhoid tender thrombosed at 03:00 o'clock Skin: Skin warm and dry. Normal skin color. Normal skin turgor. Neuro: Oriented X 3. Procedures Procedure Narrative Procedure Narrative: Hemorrhoid thrombectomy: Small thrombus was palpated at 03:00 o'clock position elliptical incision was made after hemorrhoid was infiltrated with 2% lidocaine 4 cc was used no significant clot was removed patient felt better after the incision Discharge Plan Discharge Clinical Impression: External hemorrhoid, thrombosed Patient Disposition: Home, Self-Care Instructions: Hemorrhoids (ED) Additional Instructions: Continue to use suppository as prescribed and follow-up with surgeon as scheduled Pain medicine as prescribed Prescriptions: New morphine 15 mg tablet 15 mg PO Q8H PRN (Reason: pain) Qty: 10 0RF Rx Instructions: Partial Fill upon patient request. No Action pramoxine [Proctofoam] 1 % foam 1 appl VA BID Qty: 15 0RF morphine 15 mg tablet 15 mg PO Q8H PRN (Reason: pain) Qty: 10 0RF Rx Instructions: Partial Fill upon patient request. lidocaine 4 % gel 1 appl topical TID PRN (Reason: pain) Qty: 30 0RF cyclobenzaprine 10 mg tablet 10 mg PO BEDTIME PRN (Reason: muscle spasm) Qty: 7 0RF lidocaine 5 % adhesive patch,medicated 1 patch topical DAILY PRN (Reason: pain) Qty: 15 0RF Rx Instructions: leave on most painful area for up to 12 hrs hydrocortisone 1 % cream with perineal applicator 1 appl VA DAILY Qty: 28.4 0RF lidocaine 4 % cream 1 appl topical BID PRN (Reason: pain) Qty: 28 0RF
[2022-08-25] MEDS: Lidocaine HCl 2 % MPF 5 ML VIAL INFILTRATI (00:48)
[2022-08-25] MEDS: oxyCODONE HCl Immed Release 5 MG TABLET PO (00:51)
== END 2022-08-25 00:56 | disposition home or self-care (01) ==
PROVIDERS: Emergency Provider Internal Medicine
DX: K64.4 Residual hemorrhoidal skin tags (principal); M54.50 Low back pain, unspecified; Z79.899 Other long term (current) drug therapy
CPT/HCPCS: 99283

== ENCOUNTER → 2022-08-28 15:30 | Outpatient (BNVA) | payer BC, SELFPAY | PROVIDERS: Visit Provider Surgery | DX: K62.89 Other specified diseases of anus and rectum (principal); K64.4 Residual hemorrhoidal skin tags | CPT/HCPCS: 46600 ==

== ENCOUNTER 2022-09-05 10:46 | Day surgery (SDC) | payer BC, SELFPAY ==
[2022-09-05] VITALS (33 sets, daily range): BP systolic 124–183; BP diastolic 54–118; PULSE 80–120; RESP 16–22; TEMP 36.4–36.9; O2SAT 94–100; BMI 33.4
--- NOTE | 2022-09-05 11:17 | HO.ANESPROP2 ---
[facility] Active Problems Active Problems: All Active Problems (Updated 08/28/22 @ 15:54 by Soy Ogden MD) External hemorrhoids with complication (Acute) Anal pain (Acute) Past Medical History Medical History (Updated 08/28/22 @ 15:54 by Soy Ogden MD) Anal pain External hemorrhoids with complication Family History Family history of problems with anesthesia: No Surgical History History of Problems with Anesthesia: No Social History Social History (Updated 08/28/22 @ 15:43 by BRE Zamora) Alcohol intake: current Alcohol intake frequency: holidays/special occasions only Patient Tobacco Use Status: Current everyday Tobacco user Tobacco use type: Cigarette Cigarettes Per Day: 10 Are you DNR?: No Advance Directives: No Advance Directives Information Provided: Yes Meds Allergies Allergy/AdvReac Type Severity Reaction Status Date / Time No Known Allergies Allergy Unverified 08/28/22 15:41 Active Medications: Current Medications Lactated Ringer's (Lr) 1,000 mls @ 50 mls/hr IVCONT .Q20H [facility] Home Medications Medication Instructions Recorded Confirmed Last Taken Type ibuprofen 600 mg tablet 1 tab PO Q6H PRN Pain 09/05/22 09/05/22 09/02/22 History Exam Exam Date and Time: September 05, 2022 1117 Height,Weight and Vital Signs: Height 5 ft 8 in Weight 99.79 kg Last Vital Signs Temp 98.3 F 09/05/22 11:03 Pulse 92 09/05/22 11:03 Resp 18 09/05/22 11:03 BP 150/100 H 09/05/22 11:03 Pulse Ox 99 09/05/22 11:03 O2 Del Method 09/05/22 11:03 Airway Mallampati Class: II TM Dist: >3cm Neck ROM: Full Heart: rrr Lungs: cta Assessment and Plan Assessment Anesthesia Assessment: Anesthesia Plan Discussed and Chart Reviewed Final Anesthetic Review Family History of Problems with Anesthesia: No History of Problems with Anesthesia: No NPO: Yes ASA Class: II Final Preanesthetic Review: No Changes in Pt Med Stat, Meds/Allgs Chart Reviewed and Consent Obtained/Reviewed Patient Risk: Intermediate Procedure Risk: Intermediate Anesthetic Plan Anesthetic Plan: GA Disposition: Standard PACU
[2022-09-05] MEDS: Lactated Ringers 1,000 ML 50 ML IVCONT ×2 (11:26→18:32)
--- NOTE | 2022-09-05 12:26 | MHC.SHP ---
Pre-Procedural Eval Section A Date of Service: 09/05/22 The patient is an INPATIENT: No Changes since office visit: No Cold of Flu in the past 2 weeks, No New Medical Problems, No Changes in Medication and No Patient answered all questions The History & Physical has been completed within 30 days and I have reviewed it.: Yes Section B Chief Complaint: Residual hemorrhoidal skin tags,disease of anus Allergies: Allergies Allergy/AdvReac Type Severity Reaction Status Date / Time No Known Allergies Allergy Unverified 08/28/22 15:41 Plan I have reviewed the history and physical and performed a pertinent physical examination on my patient. No changes have occurred unless specified. Time Spent With Patient Time: Total time managing care of this patient today ____ minutes.
--- NOTE | 2022-09-05 13:56 | W.PM.OPN ---
Operative Note Operative Note Date of Service: 09/05/22 Narrative: Preop diagnosis: External hemorrhoids with pain and bleeding Postop diagnosis: Internal and external hemorrhoids with pain and bleeding Procedure: Exam under anesthesia, hemorrhoidectomy x2 large columns Surgeon: Soy Ogden MD The patient is a 46-year-old male was had chronic complaints of pain and bleeding with this hemorrhoids. However, this had been worsening the past few weeks and he says he has been miserable and unable to go to work because of this. He was noted to have large swollen hemorrhoidal columns on the left and right side in the office. He wanted to proceed with hemorrhoidectomy in view of this persistent symptoms. He was aware of the risks, benefits, and alternatives. He was brought to the operating room. He was placed in prone henok-knife position under general anesthesia via endotracheal tube. The buttocks were retracted with wide tape laterally. The perianal area was prepped and draped in the usual sterile fashion. A surgical time-out was done. The patient received Cefotan 2 g IV preoperatively.Lidocaine 1% was used for local anesthesia and I used this to infiltrate the area around the anus. Examination of the anal orifice revealed large external hemorrhoids which appeared to be swollen on both the left and right side. I inserted a Ekmar Thurman retractor Into the anal canal.. I examined the anal canal circumferentially. There was no fissure seen on the midline. These large swollen hemorrhoidal columns were noted, on the left and the right side, which were actually a mix of internal external hemorrhoids. I applied a Gordillo grasper at the bulky hemorrhoidal column on the left retract this out in the field. I made a figure of 8 stitch at this pedicle past the dentate line with a chromic 3-0. I made an incision around this hemorrhoidal column to the perianal skin using blade 15. I excised this hemorrhoidal column along this incision a blood the plane of sphincters with scissors. I closed this incision with a running chromic 3-0 stitch. Multiple additional hemostatic [id number] sutures were placed The same procedure was duplicated on the large hemorrhoidal column on the right side as well. Again I had to place multiple figure-eight chromic 3-0 sutures on both sides because of persistent oozing. This part of the procedure therefore took some time as we had to keep observing to make sure that there was no significant bleeding . Once I confirmed that there was note of good hemostasis, I infiltrated the perianal area with Marcaine 0.5% for postop MINI. I positioned a rolled Gelfoam into the anal canal for additional hemostasis. The procedure was then completed. He tolerated procedure well. There were no immediate complications. Initial and final counts of sponges and instruments were correct. Estimated blood loss was about 100 cc The patient was extubated without difficulty and transferred to the recovery room with stable vital signs.
[2022-09-05] MEDS: oxyCODONE HCl Immed Release 5 MG TABLET 10 MG PO (14:18)
[2022-09-05] MEDS: HYDROmorphone HCl 0.5 MG/0.5 ML SYRINGE IVPUSH ×4 (14:18→15:00)
[2022-09-05] MEDS: fentaNYL citrate/PF 100 MCG/2 ML VIAL 50 MCG IVPUSH ×4 (14:28→15:30)
[2022-09-05] MEDS: Acetaminophen 1,000 MG/100 ML PIGGYBACK 400 MG IV ×2 (15:37→22:26)
[2022-09-05] MEDS: Midazolam HCl/PF 2 MG/2 ML VIAL IVPUSH (15:39)
--- NOTE | 2022-09-05 16:36 | PM.EVENT ---
Event Note Date of Service: 09/05/22 Event Note: Underwent hemorrhoidectomy x2 columns this afternoon had large hemorrhoids with poor postop pain control he has been taking doses of p.o. morphine at home will keep for extended stay for pain management IV morphine, Toradol, and Ofirmev ordered may need straight cath p.r.n. for retention due to pain has Gelfoam packing in anal canal discussed above with Time Spent With Patient Time: Total time managing care of this patient today ____ minutes.
[2022-09-05] MEDS: Morphine Sulfate 2 MG/ML CARTRIDGE 4 MG IVPUSH ×2 (16:47→20:54)
[2022-09-05] MEDS: Lactated Ringers 1,000 ML 60 ML IVCONT (18:33)
--- NOTE | 2022-09-05 18:49 | PHA.MEDREC ---
Pharmacy Consult ? Medication Reconciliation Pharmacy has completed the medication reconciliation. Nursing med rec checked by pharmacy
[2022-09-05] MEDS: oxyCODONE HCl Immed Release 5 MG TABLET PO (18:50)
[2022-09-05] MEDS: 0.9 % Sodium Chloride 1,000 ML 60 ML IVCONT (19:11)
--- NOTE | 2022-09-05 19:16 | PC.NURSE ---
patient unable to urinate,RN attempted to str cath patient ,but patient states it is to painful and refused,will monitor
[2022-09-05] MEDS: Docusate Sodium 100 MG CAPSULE PO (22:12)
[2022-09-05] MEDS: Ketorolac Tromethamine 30 MG/ML VIAL 15 MG IVPUSH (22:24)
[2022-09-06] MEDS: Morphine Sulfate 2 MG/ML CARTRIDGE 4 MG IVPUSH (00:57)
[2022-09-06] MEDS: 0.9 % Sodium Chloride Flush 3 ML SYRINGE IVFLUSH (00:59)
[2022-09-06 01:57] VITALS: BP 116/66; PULSE 89; RESP 18; TEMP 36.9; O2SAT 99
[2022-09-06] MEDS: oxyCODONE HCl Immed Release 5 MG TABLET PO ×3 (01:59→14:21)
[2022-09-06 03:24] VITALS: BP 141/86; PULSE 99; RESP 18; TEMP 36.3; O2SAT 99
[2022-09-06] MEDS: Ketorolac Tromethamine 30 MG/ML VIAL 15 MG IVPUSH ×2 (03:36→10:24)
[2022-09-06] MEDS: Acetaminophen 1,000 MG/100 ML PIGGYBACK 400 MG IV (04:20)
[2022-09-06 08:00] VITALS: BP 127/72; PULSE 79; RESP 18; TEMP 36.6; O2SAT 96
[2022-09-06] MEDS: Heparin Sodium,Porcine 5,000 UNIT/ML VIAL 5000 UNIT SUBCUT (08:07)
[2022-09-06] MEDS: Docusate Sodium 100 MG CAPSULE PO (08:08)
--- NOTE | 2022-09-06 09:31 | HO.POSTANES ---
Post Anesthesia Evaluation Post Anesthesia Evaluation Vital Signs: Vital Signs Temp Pulse Resp BP Pulse Ox O2 Del Method 09/06/22 08:00 97.8 F 79 18 127/72 96 Room Air 09/06/22 03:24 97.4 F 99 18 141/86 H 99 Room Air 09/06/22 01:57 98.4 F 89 18 116/66 99 Room Air 09/05/22 23:12 97.6 F 80 18 128/77 99 Room Air Anesthesia: General Endotracheal-GETA Mental Status: Awake Pain Control: Satisfactory Nausea/Vomiting: None Hydration: Adequate Anesthesia-Related Issues: No Anes. Related Issues
[2022-09-06] MEDS: 0.9 % Sodium Chloride 1,000 ML 60 ML IVCONT (10:25)
--- NOTE | 2022-09-06 14:30 | MHC.CM.PN ---
EMR REVIEWED, CM MET W/PT W/ AND 24YO DTR AT BEDSIDE, PT REPORTS HE IS INDEPENDENT W/ALL CARE, DENIES USE OF DME /SERVICES. PT VERIFIES COVID VACC X2, NO PCP AND PT PROVIDED WITH P[facility]PH[facility] OF [facility] PROVIDERS AND REPORTS HE AND HAVE BEEN TRYING TO GET IN W/A PCP FOR MONTHS NOW, CM ENCOURAGED THEM TO AT LEAST FIND SOMEONE ACCEPTING NEW PT'S AND TO MAKE APPT'S. PT COMPLETED A HCP NAMING HIS JUAN [phone] HIS [facility] AND HIS MOTHER QUINCY DUFFY [phone] HIS ALTERNATE. DCP: DISCHARGE HOME TODAY SELF-CARE W/FAMILY FOR TRANSPORT
== END 2022-09-06 14:46 | disposition home or self-care (01) ==
LOC: HO.SSS 12:29 → HO.S3 18:02
PROVIDERS: Visit Provider Surgery
PROC: (CPT 46260; 2022-09-05 13:00)
DX: K62.89 Other specified diseases of anus and rectum (principal); K64.8 Other hemorrhoids; K64.4 Residual hemorrhoidal skin tags; Z79.899 Other long term (current) drug therapy; Z79.1 Long term (current) use of non-steroidal anti-inflammatories (NSAID); F17.210 Nicotine dependence, cigarettes, uncomplicated
CPT/HCPCS: 46260; 88304; J0131; J1100; J1170; J1643; J1885; J2250; J2270; J2405; J2550; J2795; J3010

== ENCOUNTER → 2022-09-17 13:32 | Outpatient (BNVA) | payer BC, SELFPAY | PROVIDERS: Visit Provider Surgery | DX: Z13.89 Encounter for screening for other disorder (principal) ==

== ENCOUNTER 2022-10-09 18:53 | Emergency (ER) | payer OTHER, BC, SELFPAY ==
[2022-10-09 19:16] VITALS: BP 134/84; PULSE 102; RESP 18; TEMP 36.6; O2SAT 98; BMI 31.9
--- NOTE | 2022-10-09 19:21 | ED_ITS ---
HPI - Burn/Smoke Inhalation General Chief complaint: Extremity Injury, Lower Stated complaint: Burn to hands at work Time Seen by Provider: 10/09/22 19:21 Source: patient Mode of arrival: ambulatory History of Present Illness HPI Narrative: 46yo M with no significant past medical history presenting to the ED complaining of burn to right index finger and left palm s/p melting plastic falling on hand at work [employer]. Tetanus unknown. Denies numbness, tingling, weakness, injury to the area, splash back to face or eyes. MD Complaint: burn Onset (ago): hour(s) Related Data Home Medications Medication Instructions Recorded Confirmed ibuprofen 600 mg tablet 1 tab PO Q6H PRN Pain 09/05/22 09/05/22 lidocaine 5 % topical ointment 1 appl topical Q4H PRN Pain 09/05/22 09/05/22 lidocaine 5 % topical patch 1 patch topical DAILY PRN pain 09/05/22 09/05/22 menthol 0.44 %-zinc oxide 20.6 % 1 appl topical QID PRN Skin 09/05/22 09/05/22 topical ointment (Calmoseptine) Irritation Previous Rx's Medication Instructions Recorded tramadol 50 mg tablet 50 mg PO TID PRN pain #20 tabs 09/01/22 docusate sodium 100 mg capsule 100 mg PO BID #60 caps 09/05/22 (Colace) oxycodone-acetaminophen 5 mg-325 1 tab PO Q4-6H PRN pain #30 tabs 09/05/22 mg tablet (Percocet) polyethylene glycol 3350 17 17 g PO DAILY #119 grams 09/06/22 gram/dose oral powder (Miralax) Allergies Allergy/AdvReac Type Severity Reaction Status Date / Time No Known Allergies Allergy Unverified 09/17/22 13:45 Review of Systems Review of Systems: Constitutional: No Fever, No Chills ENT/Mouth: No Ear Pain, No Nasal Congestion, No sore throat, No Rhinorrhea, No Swallowing Difficulty Cardiovascular: No Chest Pain, No SOB Respiratory: No Cough, No Sputum, No Wheezing Gastrointestinal: No Nausea, No Vomiting, No Diarrhea, No Constipation, No Abdominal pain Musculoskeletal: No joint pain, No Myalgias, No Joint Swelling Skin: +Skin Lesions, No rash Neuro: No Weakness, No Numbness, No Paresthesias Yes all other systems are reviewed and are negative Constitutional: Constitutional: Reports as per [facility] Past Medical History Attestation statement: The following information was validated with the patient. Medical History Anal pain External hemorrhoids with complication Kidney stones Surgical History History of hemorrhoidectomy (09/05/22) Social History Social History Household Members: Spouse Housing: House Alcohol intake: current Alcohol intake frequency: holidays/special occasions only Patient Tobacco Use Status: Current everyday Tobacco user Tobacco use type: Cigarette Cigarette Packs Per Day: 0.5 Cigarettes Per Day: 10.0 Years Smoked: 20 Second Hand Smoke Exposure: Yes Substance Use Type: Marijuana Advance Directives: No Advance Directives Information Provided: No service: No Current occupational status: employed Physical Exam Vital Signs: Vital Signs: Last Vital Signs Temp 97.9 F 10/09/22 19:16 Pulse 102 H 10/09/22 19:16 Resp 18 10/09/22 19:16 BP 134/84 10/09/22 19:16 Pulse Ox 98 10/09/22 19:16 O2 Del Method 10/09/22 19:16 BMI result Body Mass Index 31.9 Const: General: cooperative, healthy appearing and no acute distress Orientation/consciousness: patient oriented x3 Limitations: no limitations HEENT: Head: Yes normal to inspection and Yes atraumatic Ears: hearing grossly normal bilaterally General nose exam: Normal external nose present Face and sinus: Yes normal facial exam Eyes: General: appearance normal, both eyes and all related structures EOM: EOMs intact bilaterally Neck: Neck: Yes normal visual inspection and Yes no meningeal signs Resp: Effort & Inspection: normal respiratory effort and no respiratory distress Cardio: Rate: regular rate Heart sounds: S1 normal heart sound present and S2 normal heart sound present Skin: Other: please refer to images above. +second degree burn w/popped/open blister to R index finger with erythema and ttp, no drainage. Not circumfrencial. NV intact. FROM intact +superficial burn/erythema to L palmar aspect w/mild ttp. NV intact Rashes: no rashes Neuro: General: patient oriented x3, tone normal and no meningeal signs Gait exam (Neuro): Normal gait present Extrem: General: Yes normal to inspection Course Course Course Narrative: Results discussed with patient including worrisome signs and symptoms and strict return precautions, and when to return to the emergency department. They verbalized understanding and feel safe for discharge at this time. Medications Administered Discontinued Medications Generic Name Dose Route Start Last Admin Trade Name Freq PRN Reason Stop Dose Admin Bacitracin 1 appl 10/09/22 19:22 10/09/22 19:30 Bacitracin Oint 0.9 Gm Packet TOPICAL 10/09/22 19:23 1 appl ONCE ONE Administration Protocol Diphtheria/Tetanus/Acell Pertussis 0.5 ml 10/09/22 19:22 10/09/22 20:10 Diphth,Pertus(Acell),Tet Adult 0.5 Ml Syringe IM 10/09/22 19:23 0.5 ml .ONCE ONE Administration Oxycodone HCl 5 mg 10/09/22 19:22 10/09/22 20:11 Oxycodone Hcl Immed Release 5 Mg Tablet PO 10/09/22 19:23 5 mg ONCE ONE Administration Medical Decision Making Medical Decision Making MDM Narrative: 46yo M with no significant past medical history presenting to the ED complaining of burn to right index finger and left palm s/p melting plastic falling on hand at work [employer]. On exam mildly tachycardic likely from pain, physical exam as above. Please refer to images. Concern for second-degree burn to right index finger and 1st degree to left palm. No active drainage/ warmth. Not circumfere ntial ashraf. Will update tetanus, apply bacitracin with dressings Please refer to course for remaining clinical decision making, interpretation of labs/imaging results, and discussions with consultants and/or family members. Differential Diagnosis Differential Diagnoses: The differential diagnosis associated with the presentation includes As above Admission/Observation Consideration of admission/observation: Escalation of care including admission/observation considered External Record Review External record reviewed: Inpatient record, Office record, Outpatient record, Prior outpatient labs, Prior outpatient radiology, Primary care record and Outside ED record Prescription Management I considered prescription management with: Antibiotic Discharge Plan Discharge Clinical Impression: Burn of hand Patient Disposition: Home, Self-Care Instructions: Superficial Burn (ED), Second Degree Burn (ED) Prescriptions: No Action tramadol 50 mg tablet 50 mg PO TID PRN (Reason: pain) Qty: 20 0RF ibuprofen 600 mg tablet 1 tab PO Q6H PRN (Reason: Pain) oxycodone-acetaminophen [Percocet] 5-325 mg tablet 1 tab PO Q4-6H PRN (Reason: pain) Qty: 30 0RF Rx Instructions: Partial Fill upon patient request. docusate sodium [Colace] 100 mg capsule 100 mg PO BID Qty: 60 2RF lidocaine 5 % adhesive patch,medicated 1 patch topical DAILY PRN (Reason: pain) menthol-zinc oxide [Calmoseptine] 0.44-20.6 % ointment 1 appl topical QID PRN (Reason: Skin Irritation) lidocaine 5 % ointment 1 appl topical Q4H PRN (Reason: Pain) polyethylene glycol 3350 [Miralax] 17 gram/dose powder 17 g PO DAILY Qty: 119 1RF Referrals: Physician,None [Primary Care Provider] - 3 days
[2022-10-09] MEDS: Bacitracin Oint 0.9 GM PACKET 1 APPL TOPICAL (19:30)
[2022-10-09] MEDS: Diphth,Pertus(ACell),Tet Adult 0.5 ML SYRINGE IM (20:10)
[2022-10-09] MEDS: oxyCODONE HCl Immed Release 5 MG TABLET PO (20:11)
== END 2022-10-09 20:49 | disposition home or self-care (01) ==
PROVIDERS: Emergency Provider Emergency Medicine
DX: T23.021A Burn of unspecified degree of single right finger (nail) except thumb, initial encounter (principal); T23.152A Burn of first degree of left palm, initial encounter; X19.XXXA Contact with other heat and hot substances, initial encounter; Y93.9 Activity, unspecified; Y92.59 Other trade areas as the place of occurrence of the external cause; Y99.0 Civilian activity done for income or pay
CPT/HCPCS: 16020; 90471; 90715; 99283; 99284

== ENCOUNTER 2022-10-21 08:42 | Outpatient (RCR) | payer OTHER, BC, SELFPAY | END 2022-10-21 16:00 | disposition home or self-care (01) | LOC: HO.WCC 08:42 | PROVIDERS: Visit Provider Physician Assistant | DX: T23.221A Burn of second degree of single right finger (nail) except thumb, initial encounter (principal); T23.052A Burn of unspecified degree of left palm, initial encounter; T31.0 Burns involving less than 10% of body surface; X19.XXXA Contact with other heat and hot substances, initial encounter; F17.210 Nicotine dependence, cigarettes, uncomplicated | CPT/HCPCS: 99212 ==

== ENCOUNTER 2024-08-08 10:49 | Emergency (ER) | payer BC, SELFPAY ==
[2024-08-08 13:00] VITALS: BP 139/83; PULSE 93; RESP 16; TEMP 36.3; O2SAT 99; BMI 30.4
--- NOTE | 2024-08-08 13:00 | ED_ITS ---
HPI - General Adult General Chief complaint: Medical Clearance Stated complaint: detox information Related Data Home Medications ?Medication ?Instructions ?Recorded ?Confirmed ibuprofen 600 mg tablet 1 tab PO Q6H PRN Pain 09/05/22 09/05/22 lidocaine 5 % topical ointment 1 appl topical Q4H PRN Pain 09/05/22 09/05/22 lidocaine 5 % topical patch 1 patch topical DAILY PRN pain 09/05/22 09/05/22 menthol 0.44 %-zinc oxide 20.6 % 1 appl topical QID PRN Skin 09/05/22 09/05/22 topical ointment (Calmoseptine) Irritation Previous Rx's ?Medication ?Instructions ?Recorded tramadol 50 mg tablet 50 mg PO TID PRN pain #20 tabs 09/01/22 docusate sodium 100 mg capsule 100 mg PO BID #60 caps 09/05/22 (Colace) oxycodone-acetaminophen 5 mg-325 1 tab PO Q4-6H PRN pain #30 tabs 09/05/22 mg tablet (Percocet) polyethylene glycol 3350 17 17 g PO DAILY #119 grams 09/06/22 gram/dose oral powder (Miralax) bacitracin 500 unit/gram topical 1 appl topical BID #30 grams 10/09/22 ointment hydrocodone 5 mg-acetaminophen 325 1 tab PO Q8H PRN pain, severe 3 10/09/22 mg tablet days #5 tabs oxycodone-acetaminophen 5 mg-325 1 tab PO Q8H PRN severe pain 10/11/22 mg tablet (Percocet) (scale score 7-10) #5 tabs Allergies Allergy/AdvReac Type Severity Reaction Status Date / Time No Known Allergies Allergy Verified 08/08/24 13:02 [facility] Past Medical History Medical History Anal pain External hemorrhoids with complication Kidney stones Surgical History History of hemorrhoidectomy (09/05/22) Social History Social History Household Members: Spouse Housing: House Alcohol intake: current Alcohol intake frequency: holidays/special occasions only Patient Tobacco Use Status: Current everyday Tobacco user Tobacco use type: Cigarette Cigarette Packs Per Day: 0.5 Cigarettes Per Day: 10.0 Years Smoked: 20 Second Hand Smoke Exposure: Yes Substance Use Type: Marijuana Advance Directives: No Advance Directives Information Provided: No Do you have a plan to hurt others: No Plan service: No Current occupational status: employed Physical Exam ED Vital Signs: BMI result Body Mass Index 30.4 Course Course Course Narrative: This is a rapid medical exam performed by Pema Garsia NP: Additional HPI, ROS, PE not included below will be deferred to primary provider. Patient is a 48-year-old male presenting to the ED requesting assistance with detox from painkillers, unable to specify what. Had withdrawal symptoms this morning, but took 2 pills and symptoms have improved. Plan: med clearance, CARE eval Discharge Plan Discharge Clinical Impression: Substance use Patient Disposition: Left W/O Completing Treatment Prescriptions: No Action tramadol 50 mg tablet 50 mg PO TID PRN (Reason: pain) Qty: 20 0RF ibuprofen 600 mg tablet 1 tab PO Q6H PRN (Reason: Pain) oxycodone-acetaminophen [Percocet] 5-325 mg tablet 1 tab PO Q4-6H PRN (Reason: pain) Qty: 30 0RF Rx Instructions: Partial Fill upon patient request. docusate sodium [Colace] 100 mg capsule 100 mg PO BID Qty: 60 2RF lidocaine 5 % adhesive patch,medicated 1 patch topical DAILY PRN (Reason: pain) menthol-zinc oxide [Calmoseptine] 0.44-20.6 % ointment 1 appl topical QID PRN (Reason: Skin Irritation) lidocaine 5 % ointment 1 appl topical Q4H PRN (Reason: Pain) polyethylene glycol 3350 [Miralax] 17 gram/dose powder 17 g PO DAILY Qty: 119 1RF bacitracin 500 unit/gram ointment 1 appl topical BID Qty: 30 2RF hydrocodone-acetaminophen 5-325 mg tablet 1 tab PO Q8H PRN (Reason: pain, severe) 3 Days Qty: 5 0RF Rx Instructions: Partial Fill upon patient request. oxycodone-acetaminophen [Percocet] 5-325 mg tablet 1 tab PO Q8H PRN (Reason: severe pain (scale score 7-10)) Qty: 5 0RF Rx Instructions: Partial Fill upon patient request. Discharge Date/Time: 08/08/24 17:41
--- NOTE | 2024-08-08 13:19 | MHC.RECOVRN ---
Received CARE Team consult for ATS. Awaiting medical clearance.
--- NOTE | 2024-08-08 16:09 | MHC.RECOVRN ---
Attempted to provide patient with resources while waiting for medical clearance, pt not in the waiting room.
== END 2024-08-08 17:41 | disposition left against medical advice (07) ==
PROVIDERS: Emergency Provider Emergency Medicine
DX: F19.10 Other psychoactive substance abuse, uncomplicated (principal); F17.210 Nicotine dependence, cigarettes, uncomplicated
CPT/HCPCS: 99281; 99282

== ENCOUNTER 2024-09-13 13:44 | Emergency (ER) | payer BC, SELFPAY ==
--- NOTE | ~2024-09-13 | XR_ITS ---
CLINICAL HISTORY: abd pain, constipation Abdominal radiographs Comparison: None Findings: There is a nonobstructive bowel gas pattern. Stool quantity is mildly increased. No pneumoperitoneum or pneumatosis. No acute osseous or soft tissue abnormality. Impression: Mildly increased stool quantity is consistent with the given history of constipation. This document has been electronically signed by: Marisol Castro MD on 09/13/2024 17:24:44
--- NOTE | 2024-09-13 13:52 | ECG_ITS ---
Test Reason : chest pain Blood Pressure : */* mmHG Vent. Rate : 74 BPM Atrial Rate : 74 BPM P-R Int : 162 ms QRS Dur : 86 ms QT Int : 370 ms P-R-T Axes : 67 71 61 degrees QTcB Int : 410 ms Normal sinus rhythm Normal ECG No previous ECGs available Referred By: Generic ED Physician Electronically Signed By: AV MORATAYA
[2024-09-13 15:02] VITALS: BP 109/67; PULSE 80; RESP 20; TEMP 36.6; O2SAT 98; BMI 29.1
[2024-09-13 16:08] LABS: MANUAL DIFF FLAG NO
[2024-09-13 16:12] LABS: Basophils Percent Auto 0.3 % (0-2); Eosinophils Percent Auto 0.4 % (0-4); Hematocrit 39.6 % (42.0-52.0); Hemoglobin 12.7 g/dl (14.0-18.0); Imm Gran Abs Auto 0.04 X10*3/uL (0.00-0.03); Imm Gran Pct Auto 0.4 % (0.0-0.4); Lymphocytes Absolute Auto 1.8 X10*3/uL (1.2-4.9); Lymphocytes Percent Auto 16.6 % (20-40); Mean Corpuscular HGB Conc 32.1 g/dl (31.0-36.0); Mean Corpuscular Hemoglobin 23.6 pg (27.0-33.0); Mean Corpuscular Volume 73.6 fL (80.0-98.0); Mean Platelet Volume 9.8 fL (9.4-12.4); Monocytes Absolute Auto 0.4 X10*3/uL (0.1-1.2); Monocytes Percent Auto 3.8 % (2-11); Neutrophils Absolute Auto 8.4 x10*3/uL (2.0-8.3); Neutrophils Percent Auto 78.5 % (45-73); Platelet Count 262 X10*3/uL (160-400); Red Blood Count 5.38 X10*6/uL (4.60-5.80); Red Cell Distribution Width 15.9 % (11.0-16.0); White Blood Count 10.7 X10*3/uL (4.8-10.8)
[2024-09-13 16:23] LABS: Alanine Aminotransferase 21 U/L (0-40); Albumin Level 4.3 g/dL (3.5-5.0); Alkaline Phosphatase 63 U/L (39-117); Anion Gap 11 (12-20); Aspartate Amino Transferase 27 U/L (5-37); Bilirubin Direct 0.1 mg/dL (0.0-0.5); Bilirubin Total 0.3 mg/dL (0.0-1.0); Blood Urea Nitrogen 14 mg/dL (9-16); Carbon Dioxide 26 mmol/L (22-29); Chloride 107 mmol/L (96-108); Creatinine Clr Calc Pharmacy 131.8; Estimated Glomerular Filt Rate > 60; Glucose Random 108 mg/dL (60-115); Lipase 16 U/L (8-78); Potassium 4.7 mmol/L (3.3-5.1); Sodium 139 mmol/L (135-145); Total Protein 7.3 g/dL (6.5-8.0)
[2024-09-13 18:15] VITALS: BP 139/78; PULSE 82; RESP 20; TEMP 36.4; O2SAT 99
--- NOTE | 2024-09-13 18:16 | ED.ABDPAIN ---
HPI - Abdominal Pain General Chief Complaint: Abdominal Pain Stated Complaint: Abd pain, chest pain Time Seen by Provider: 09/13/24 18:43 Source: patient and RN notes reviewed Mode of arrival: ambulatory Limitations: no limitations History of Present Illness ED Provider: Makeda Vicente PA-C HPI narrative: This is a 48-year-old male, with a history of opioid use disorder on methadone, who presents emergency department with concerns for constipation. Patient states that he was started on methadone 4 weeks ago and states that since then he has had issues moving his bowels. He states that he currently is on senna and docusate which he has been taking with some relief. Last bowel movement was 2 days ago. He took 1 dose of MiraLax this afternoon. He is passing gas. No fevers, chills, chest pain, shortness of breath, abdominal pain, vomiting, diarrhea. No urinary symptoms. No other complaints or concerns at this time. MD elicited complaint: abdominal pain Pertinent past history: constipation Onset (ago): day(s) Pain Consistency: constant Quality: aching Radiation: none Migration to: no migration Exacerbating factors: nothing Relieving factors: nothing Associated symptoms: denies other symptoms Related Data Home Medications ?Medication ?Instructions ?Recorded ?Confirmed ibuprofen 600 mg tablet 1 tab PO Q6H PRN Pain 09/05/22 09/05/22 lidocaine 5 % topical ointment 1 appl topical Q4H PRN Pain 09/05/22 09/05/22 lidocaine 5 % topical patch 1 patch topical DAILY PRN pain 09/05/22 09/05/22 menthol 0.44 %-zinc oxide 20.6 % 1 appl topical QID PRN Skin 09/05/22 09/05/22 topical ointment (Calmoseptine) Irritation Previous Rx's ?Medication ?Instructions ?Recorded tramadol 50 mg tablet 50 mg PO TID PRN pain #20 tabs 09/01/22 docusate sodium 100 mg capsule 100 mg PO BID #60 caps 09/05/22 (Colace) oxycodone-acetaminophen 5 mg-325 1 tab PO Q4-6H PRN pain #30 tabs 09/05/22 mg tablet (Percocet) polyethylene glycol 3350 17 17 g PO DAILY #119 grams 09/06/22 gram/dose oral powder (Miralax) bacitracin 500 unit/gram topical 1 appl topical BID #30 grams 10/09/22 ointment hydrocodone 5 mg-acetaminophen 325 1 tab PO Q8H PRN pain, severe 3 10/09/22 mg tablet days #5 tabs oxycodone-acetaminophen 5 mg-325 1 tab PO Q8H PRN severe pain 10/11/22 mg tablet (Percocet) (scale score 7-10) #5 tabs Allergies Allergy/AdvReac Type Severity Reaction Status Date / Time No Known Allergies Allergy Verified 09/13/24 15:07 Review of Systems Review of Systems Yes all other systems are reviewed and are negative Constitutional: Reports as per [facility] Past Medical History Medical History Anal pain External hemorrhoids with complication Kidney stones Surgical History History of hemorrhoidectomy (09/05/22) Social History Social History Household Members: Spouse Housing: House Alcohol intake: current Alcohol intake frequency: holidays/special occasions only Patient Tobacco Use Status: Current everyday Tobacco user Tobacco use type: Cigarette Cigarette Packs Per Day: 0.5 Cigarettes Per Day: 10.0 Years Smoked: 20 Second Hand Smoke Exposure: Yes Substance Use Type: Marijuana Advance Directives: No Advance Directives Information Provided: No Do you have a plan to hurt others: No Plan service: No Current occupational status: employed Physical Exam ED Vital Signs: Vital Signs - 24 hr 09/13/24 15:02 09/13/24 18:15 09/13/24 18:58 Temperature 97.9 F 97.5 F 97.5 F Pulse Rate 80 82 82 Respiratory Rate 20 20 20 Blood Pressure 109/67 139/78 139/78 Pulse Oximetry 98 99 99 Oxygen Delivery Method Room Air Room Air Room Air BMI result Body Mass Index 29.1 Const General: cooperative, comfortable and no acute distress Orientation/consciousness: patient oriented x3 Limitations: no limitations HENMT Head: Yes normal to inspection, Yes normocephalic and Yes atraumatic Ears: hearing grossly normal bilaterally General nose exam: Normal external nose present Face and sinus: Yes normal facial exam Mouth: Normal oral and palatal mucosa present, oropharynx normal and moist mucous membranes Throat: Yes posterior oropharynx normal Eyes General: appearance normal, both eyes and all related structures Eyelids: Yes eyelids normal Conjunctivae: conjunctivae normal Sclerae: sclerae normal Pupils: Equal, round and reactive pupils present EOM: EOMs intact bilaterally Neck Neck: Yes normal visual inspection, Yes full ROM and Yes no lymphadenopathy Lymphatic: no lymphadenopathy noted Chest Chest palpation & inspection: normal inspection of the chest Resp Effort & Inspection: normal respiratory effort and able to speak in complete sentences Auscultation: clear to auscultation bilaterally, no crackles, no rales, no rhonchi and no wheezes Cardio Rate: regular rate Rhythm: regular rhythm Heart sounds: S1 normal heart sound present and S2 normal heart sound present GI Other: Abdomen is soft, nontender, nondistended, normoactive bowel sounds present in all 4 quadrants. Inspection: Yes normal to inspection Skin General skin exam: no rashes or lesions noted Trauma: no lacerations or abrasions Wounds: no wounds Neuro General: patient oriented x3 and moves all extremities Cranial nerves: Yes Equal, round and reactive pupils present Extrem General: Yes normal to inspection Right upper extremity: normal to inspection Left upper extremity: normal to inspection Right lower extremity: normal to inspection Left lower extremity: normal to inspection Medical Decision Making Medical Decision Making MDM Narrative: This is a 48-year-old male who presents emergency department with complaints of abdominal pain and constipation. He recently started on methadone several weeks ago, currently taking senna and docusate. On arrival, vital signs within normal limits. He is speaking full sentences under acute distress. Abdomen is soft, nontender, nondistended. Labs were performed, he has no leukocytosis, microcytic anemia noted with an H&H of 12.7/39.6. Chemistry with no significant electrolyte derangement. X-ray revealing mildly increased stool quantity consistent with constipation. No obstructing gas pattern seen on KUB. EKG normal sinus rhythm at a ventricular rate of 74 beats per minute, no acute ischemic changes seen on EKG. Discussed overall workup with patient. Constipation likely secondary to methadone usage. Discussed with patient that he should several doses of MiraLax at home, and can use suppositories which he has at home. Discussed increasing fiber, as well as exercise and, drinking plenty of fluids, and dietary changes. Discussed strict return precautions. Patient stable for discharge. Differential Diagnosis Differential Diagnoses: The differential diagnosis associated with the presentation includes Constipation, SBO, gastritis, gastroenteritis, medication side effect Lab Data [facility] Lab Attestation statement: I reviewed the patient's lab results. See MDM 09/13/24 16:05 09/13/24 16:05 Labs: Lab Results 09/13/24 Range/Units 16:05 WBC 10.7 (4.8-10.8) X10*3/uL RBC 5.38 (4.60-5.80) X10*6/uL Hgb 12.7 L (14.0-18.0) g/dl Hct 39.6 L (42.0-52.0) % MCV 73.6 L (80.0-98.0) fL MCH 23.6 L (27.0-33.0) pg MCHC 32.1 (31.0-36.0) g/dl RDW 15.9 (11.0-16.0) % Plt Count 262 (160-400) X10*3/uL MPV 9.8 (9.4-12.4) fL Immature Gran % (Auto) 0.4 (0.0-0.4) % Neut % (Auto) 78.5 H (45-73) % Lymph % (Auto) 16.6 L (20-40) % [place] % (Auto) 3.8 (2-11) % Eos % (Auto) 0.4 (0-4) % Baso % (Auto) 0.3 (0-2) % Lymph # (Auto) 1.8 (1.2-4.9) X10*3/uL [place] # (Auto) 0.4 (0.1-1.2) X10*3/uL Eos # (Auto) 0.0 (0.0-0.4) X10*3/uL Baso # (Auto) 0.0 (0.0-0.2) X10*3/uL Abs Immat Gran (auto) 0.04 H (0.00-0.03) X10*3/uL Absolute Neuts (auto) 8.4 H (2.0-8.3) x10*3/uL Absolute Nucleated RBC 0.000 (0.0-0.012) X10*3/uL Nucleated RBC % (auto) 0.0 (0.0-0.2) /100WBC Sodium 139 (135-145) mmol/L Potassium 4.7 (3.3-5.1) mmol/L Chloride 107 (96-108) mmol/L Carbon Dioxide 26 (22-29) mmol/L Anion Gap 11 L (12-20) BUN 14 (9-16) mg/dL Creatinine 0.75 (0.5-1.4) mg/dL Estim Creat Clear Calc 131.8 Estimated GFR > 60 Random Glucose 108 (60-115) mg/dL Calcium 9.0 (8.4-10.2) mg/dL Total Bilirubin 0.3 (0.0-1.0) mg/dL Direct Bilirubin 0.1 (0.0-0.5) mg/dL AST 27 (5-37) U/L ALT 21 (0-40) U/L Alkaline Phosphatase 63 (39-117) U/L Total Protein 7.3 (6.5-8.0) g/dL Albumin 4.3 (3.5-5.0) g/dL Lipase 16 (8-78) U/L Radiology Impression Discussion of test interpretation with radiology: I have reviewed the radiologist's reading. External Record Review External record reviewed: Inpatient record, Office record, Outpatient record, Prior outpatient labs, Prior outpatient radiology, Primary care record and Outside ED record Discharge Plan Discharge Clinical Impression: Constipation Patient Disposition: Home, Self-Care Instructions: Constipation (ED), High Fiber Diet (ED) Additional Instructions: You were seen in the emergency department due to constipation. Your x-ray does show constipation, and increased stool quantity. Please drink plenty of fluids get plenty of rest. Continue taking the stool softener, take this dose tonight. Take MiraLax once a day. You should have a bowel movement tomorrow, however if you do, you may use your suppositories you already have at home. Please follow-up with your primary care physician. If any new or worsening symptoms occur including but not limited to severe abdominal pain, severe chest pain, shortness of breath, please seek emergent care. Prescriptions: No Action tramadol 50 mg tablet 50 mg PO TID PRN (Reason: pain) Qty: 20 0RF ibuprofen 600 mg tablet 1 tab PO Q6H PRN (Reason: Pain) oxycodone-acetaminophen [Percocet] 5-325 mg tablet 1 tab PO Q4-6H PRN (Reason: pain) Qty: 30 0RF Rx Instructions: Partial Fill upon patient request. docusate sodium [Colace] 100 mg capsule 100 mg PO BID Qty: 60 2RF lidocaine 5 % adhesive patch,medicated 1 patch topical DAILY PRN (Reason: pain) menthol-zinc oxide [Calmoseptine] 0.44-20.6 % ointment 1 appl topical QID PRN (Reason: Skin Irritation) lidocaine 5 % ointment 1 appl topical Q4H PRN (Reason: Pain) polyethylene glycol 3350 [Miralax] 17 gram/dose powder 17 g PO DAILY Qty: 119 1RF bacitracin 500 unit/gram ointment 1 appl topical BID Qty: 30 2RF hydrocodone-acetaminophen 5-325 mg tablet 1 tab PO Q8H PRN (Reason: pain, severe) 3 Days Qty: 5 0RF Rx Instructions: Partial Fill upon patient request. oxycodone-acetaminophen [Percocet] 5-325 mg tablet 1 tab PO Q8H PRN (Reason: severe pain (scale score 7-10)) Qty: 5 0RF Rx Instructions: Partial Fill upon patient request. Interventions: ED Discharge Assessment Last Done: 09/13/24 18:58 Discharge Date/Time: 09/13/24 18:58 Print Language: Georgian
[2024-09-13 18:58] VITALS: BP 139/78; PULSE 82; RESP 20; TEMP 36.4; O2SAT 99
== END 2024-09-13 18:58 | disposition home or self-care (01) ==
PROVIDERS: Emergency Provider Emergency Medicine
DX: K59.00 Constipation, unspecified (principal); R10.9 Unspecified abdominal pain; F11.20 Opioid dependence, uncomplicated; F17.210 Nicotine dependence, cigarettes, uncomplicated
CPT/HCPCS: 36415; 74018; 80048; 80076; 83690; 85025; 93005; 99283

== ENCOUNTER → 2024-09-13 13:52 | Outpatient (BNV) | payer BC, SELFPAY | PROVIDERS: Emergency Provider Emergency Medicine; Visit Provider Internal Medicine | DX: R07.9 Chest pain, unspecified (principal) | CPT/HCPCS: 93010 ==

== ENCOUNTER → 2024-09-13 16:27 | Outpatient (BNV) | payer BC, SELFPAY | PROVIDERS: Visit Provider Radiology Diagnostic Radiology | DX: K59.00 Constipation, unspecified (principal); R10.9 Unspecified abdominal pain | CPT/HCPCS: 74018 ==

== ENCOUNTER 2024-09-13 23:15 | Emergency (ER) | payer BC, SELFPAY ==
--- NOTE | 2024-09-14 01:57 | PC.NURSE ---
pt appeared at the reg desk. pt did not answer to multiple calls of his name.
[2024-09-14 02:00] VITALS: BP 128/79; PULSE 76; RESP 16; TEMP 36.6; O2SAT 99; BMI 29.3
[2024-09-14 04:30] VITALS: BP 123/70; PULSE 80; RESP 16; TEMP 36.7; O2SAT 98
--- NOTE | 2024-09-14 09:02 | ED_ITS ---
HPI - Male Genitourinary General Chief complaint: Urogenital-Male Stated complaint: headache - nausesous Time Seen by Provider: 09/14/24 08:51 Source: patient, RN notes reviewed and old records reviewed Mode of arrival: ambulatory History of Present Illness ED Provider: Hermelinda Willingham PA-C HPI Narrative: 48-year-old male with a PMHx of opioid use disorder on methadone presenting to the ED complaining of constipation x3 days without BM. Admits is passing flatus. Reports some nausea. Denies vomiting, diarrhea, dysuria/hematuria. Has been taking OTC medications without relief. Per chart review patient was evaluated in our ED yesterday for similar symptoms had labs and KUB which showed constipation. Related Data Home Medications ?Medication ?Instructions ?Recorded ?Confirmed ibuprofen 600 mg tablet 1 tab PO Q6H PRN Pain 09/05/22 09/05/22 lidocaine 5 % topical ointment 1 appl topical Q4H PRN Pain 09/05/22 09/05/22 lidocaine 5 % topical patch 1 patch topical DAILY PRN pain 09/05/22 09/05/22 menthol 0.44 %-zinc oxide 20.6 % 1 appl topical QID PRN Skin 09/05/22 09/05/22 topical ointment (Calmoseptine) Irritation Previous Rx's ?Medication ?Instructions ?Recorded tramadol 50 mg tablet 50 mg PO TID PRN pain #20 tabs 09/01/22 docusate sodium 100 mg capsule 100 mg PO BID #60 caps 09/05/22 (Colace) oxycodone-acetaminophen 5 mg-325 1 tab PO Q4-6H PRN pain #30 tabs 09/05/22 mg tablet (Percocet) polyethylene glycol 3350 17 17 g PO DAILY #119 grams 09/06/22 gram/dose oral powder (Miralax) bacitracin 500 unit/gram topical 1 appl topical BID #30 grams 10/09/22 ointment hydrocodone 5 mg-acetaminophen 325 1 tab PO Q8H PRN pain, severe 3 10/09/22 mg tablet days #5 tabs oxycodone-acetaminophen 5 mg-325 1 tab PO Q8H PRN severe pain 10/11/22 mg tablet (Percocet) (scale score 7-10) #5 tabs polyethylene glycol 3350 17 17 g PO DAILY PRN constipation 09/14/24 gram/dose oral powder (Miralax) #119 grams sodium phosphates 19 gram-7 118 ml VT BEDTIME PRN constipation 09/14/24 gram/118 mL enema (Fleet Enema) #133 mL Allergies Allergy/AdvReac Type Severity Reaction Status Date / Time No Known Allergies Allergy Verified 09/14/24 02:05 Review of Systems 2 Review of Systems: Yes all other systems are reviewed and are negative Constitutional: Constitutional: Reports as per [facility] Past Medical History Attestation statement: The following information was validated with the patient. Source: old records reviewed Medical History Kidney stones External hemorrhoids with complication Anal pain Surgical History History of hemorrhoidectomy (09/05/22) Social History Social History Household Members: Spouse Housing: House Alcohol intake: current Alcohol intake frequency: holidays/special occasions only Patient Tobacco Use Status: Current everyday Tobacco user Tobacco use type: Cigarette Cigarette Packs Per Day: 0.5 Cigarettes Per Day: 10.0 Years Smoked: 20 Smoked in Last 30 Days: No Second Hand Smoke Exposure: Yes Use of substances other than those prescribed or required for medical reasons: No Substance Use Type: Marijuana Advance Directives: Yes Advance Directives on File: Yes Advance Directives Date on File: 09/08/22 Do you have a plan to hurt others: No Plan service: No Current occupational status: employed Physical Exam 2 Vital Signs: Vital Signs: Last Vital Signs Temp 98.2 F 09/14/24 11:31 Pulse 69 09/14/24 11:31 Resp 18 09/14/24 11:31 BP 103/64 09/14/24 11:31 Pulse Ox 99 09/14/24 11:31 O2 Del Method Room Air 09/14/24 11:31 BMI result Body Mass Index 29.3 Const: General: cooperative, healthy appearing and no acute distress O rientation/consciousness: patient oriented x3 Limitations: no limitations HEENT: Head: Yes normal to inspection and Yes atraumatic Ears: hearing grossly normal bilaterally General nose exam: Normal external nose present Face and sinus: Yes normal facial exam Eyes: General: appearance normal, both eyes and all related structures EOM: EOMs intact bilaterally Neck: Neck: Yes normal visual inspection and Yes no meningeal signs Resp: Effort & Inspection: normal respiratory effort and no respiratory distress Auscultation: clear to auscultation bilaterally Cardio: Rate: regular rate Heart sounds: S1 normal heart sound present and S2 normal heart sound present GI: Inspection: Yes normal to inspection Palpation (GI): Soft to palpation, nontender, no guarding and not rigid : Other: + fecal impaction appreciated on rectal General: Yes no CVA tenderness Male General Exam: Yes normal external exam Back/Spine/Pelvis: Back: no CVA tenderness Skin: Rashes: no rashes Wounds: no wounds Neuro: General: patient oriented x3, tone normal and no meningeal signs C ranial nerves: Yes CN's II-XII intact bilaterally Gait exam (Neuro): Normal gait present Extrem: General: Yes normal to inspection Course Course Course Narrative: -labs reassuring > 1121--on re-evaluation after disimpaction and enema patient successfully had 2 bowel movements. Reports symptomatic improvement in the ED, feels comfortable for discharge home at this time Results discussed with patient including worrisome signs and symptoms and strict return precautions, and when to return to the emergency department. They verbalized understanding and feel safe for discharge at this time. Medications Administered Discontinued Medications Generic Name Dose Route Start Last Admin Trade Name Freq PRN Reason Stop Dose Admin Mineral Oil 133 ml 09/14/24 09:14 09/14/24 09:36 Mineral Oil Enema 133 Ml Enema VT 09/14/24 09:15 133 ml ONCE ONE Administration Polyethylene Glycol 17 gm 09/14/24 09:14 09/14/24 09:34 Polyethylene Glycol 3350 17 Gm Powd.Pack PO 09/14/24 09:15 17 gm ONCE ONE Administration Medical Decision Making Medical Decision Making [facility] Narrative: 48-year-old male with a PMHx of opioid use disorder on methadone presenting to the ED complaining of constipation x3 days without BM. Admits is passing flatus. On exam vital signs stable, NAD, nontoxic appearing, abdomen is soft and nontender. Fecal impaction appreciated on rectal, small amount of stool extracted. Patient did not tolerate procedure well, had to stop early. Concern for fecal impaction and constipation. Lower suspicion for obstruction. Patient with KUB yesterday showing constipation. Unlikely acute appendicitis/diverticulitis or pancreatitis Plan: Labs, enema, MiraLax, re-evaluate Please refer to course for remaining clinical decision making, interpretation of labs/imaging results, and discussions with consultants and/or family members. Differential Diagnosis Differential Diagnoses: The differential diagnosis associated with the presentation includes As above Admission/Observation Consideration of admission/observation: Escalation of care including admission/observation considered Lab Data MDM Lab Attestation statement: I reviewed the patient's lab results. 09/14/24 09:33 09/14/24 09:33 Labs: Lab Results 09/14/24 Range/Units 09:33 WBC 6.5 (4.8-10.8) X10*3/uL RBC 5.00 (4.60-5.80) X10*6/uL Hgb 11.8 L (14.0-18.0) g/dl Hct 36.4 L (42.0-52.0) % MCV 72.8 L (80.0-98.0) fL MCH 23.6 L (27.0-33.0) pg MCHC 32.4 (31.0-36.0) g/dl RDW 15.7 (11.0-16.0) % Plt Count 223 (160-400) X10*3/uL MPV 9.1 L (9.4-12.4) fL Immature Gran % (Auto) 0.3 (0.0-0.4) % Neut % (Auto) 65.1 (45-73) % Lymph % (Auto) 26.2 (20-40) % [place] % (Auto) 6.7 (2-11) % Eos % (Auto) 1.4 (0-4) % Baso % (Auto) 0.3 (0-2) % Lymph # (Auto) 1.7 (1.2-4.9) X10*3/uL [place] # (Auto) 0.4 (0.1-1.2) X10*3/uL Eos # (Auto) 0.1 (0.0-0.4) X10*3/uL Baso # (Auto) 0.0 (0.0-0.2) X10*3/uL Abs Immat Gran (auto) 0.02 (0.00-0.03) X10*3/uL Absolute Neuts (auto) 4.2 (2.0-8.3) x10*3/uL Absolute Nucleated RBC 0.000 (0.0-0.012) X10*3/uL Nucleated RBC % (auto) 0.0 (0.0-0.2) /100WBC Sodium 138 (135-145) mmol/L Potassium 3.8 (3.3-5.1) mmol/L Chloride 106 (96-108) mmol/L Carbon Dioxide 25 (22-29) mmol/L Anion Gap 11 L (12-20) BUN 11 (9-16) mg/dL Creatinine 0.72 (0.5-1.4) mg/dL Estim Creat Clear Calc 137.8 Estimated GFR > 60 Random Glucose 100 (60-115) mg/dL Calcium 8.7 (8.4-10.2) mg/dL Magnesium 2.0 (1.6-2.6) mg/dL Total Bilirubin 0.4 (0.0-1.0) mg/dL Direct Bilirubin 0.1 (0.0-0.5) mg/dL AST 26 (5-37) U/L ALT 22 (0-40) U/L Alkaline Phosphatase 57 (39-117) U/L Total Protein 7.0 (6.5-8.0) g/dL Albumin 4.2 (3.5-5.0) g/dL Lipase 17 (8-78) U/L Independent Interpretation I performed an independent interpretation of an: Plain X-Ray Radiology Impression Discussion of test interpretation with radiology: I have reviewed the radiologist's reading. External Record Review External record reviewed: Inpatient record, Office record, Outpatient record, Prior outpatient labs, Prior outpatient radiology, Primary care record and Outside ED record Tests considered The following testing was considered but not selected: As above Prescription Management I considered prescription management with: Other Chronic Conditions Patient?s care impacted by: Other Social Determinants Patient?s care significantly limited by Social Determinants of Health including: Alcoholism and drug addiction in family Procedures Rectal Disimpaction Indication: fecal impaction Procedural Sedation: No Sedation/Analgesia: none Technique: manual disimpaction with gloved finger Result: significant stool output (small ) Complications: pain Discharge Plan Discharge Clinical Impression: Constipation Patient Disposition: Home, Self-Care Instructions: Constipation (DC) Additional Instructions: Increase fiber in your diet We sent in enema to the pharmacy as needed Take MiraLax daily as needed for constipation Make sure drinking plenty of fluids If you do not have another bowel movement in 48 hours or you start passing gas or persistent or worsening abdominal pain or nausea/vomiting return to the ED Prescriptions: New polyethylene glycol 3350 [Miralax] 17 gram/dose powder 17 g PO DAILY PRN (Reason: constipation) Qty: 119 0RF Fleet Enema 19-7 gram/118 mL enema 118 ml VT BEDTIME PRN (Reason: constipation) Qty: 133 0RF No Action tramadol 50 mg tablet 50 mg PO TID PRN (Reason: pain) Qty: 20 0RF ibuprofen 600 mg tablet 1 tab PO Q6H PRN (Reason: Pain) oxycodone-acetaminophen [Percocet] 5-325 mg tablet 1 tab PO Q4-6H PRN (Reason: pain) Qty: 30 0RF Rx Instructions: Partial Fill upon patient request. docusate sodium [Colace] 100 mg capsule 100 mg PO BID Qty: 60 2RF lidocaine 5 % adhesive patch,medicated 1 patch topical DAILY PRN (Reason: pain) menthol-zinc oxide [Calmoseptine] 0.44-20.6 % ointment 1 appl topical QID PRN (Reason: Skin Irritation) lidocaine 5 % ointment 1 appl topical Q4H PRN (Reason: Pain) polyethylene glycol 3350 [Miralax] 17 gram/dose powder 17 g PO DAILY Qty: 119 1RF bacitracin 500 unit/gram ointment 1 appl topical BID Qty: 30 2RF hydrocodone-acetaminophen 5-325 mg tablet 1 tab PO Q8H PRN (Reason: pain, severe) 3 Days Qty: 5 0RF Rx Instructions: Partial Fill upon patient request. oxycodone-acetaminophen [Percocet] 5-325 mg tablet 1 tab PO Q8H PRN (Reason: severe pain (scale score 7-10)) Qty: 5 0RF Rx Instructions: Partial Fill upon patient request. Referrals: Physician,Unknown J [Primary Care Provider] - 5 days Interventions: LWBS Worksheet Last Done: 09/14/24 00:56 ED Discharge Assessment Last Done: 09/14/24 11:31 Discharge Date/Time: 09/14/24 11:32 Print Language: Sri Lankan
[2024-09-14 09:28] VITALS: BP 103/64; PULSE 69; RESP 18; TEMP 36.8; O2SAT 99
[2024-09-14] MEDS: polyethylene glycoL 3350 17 GM POWD.PACK PO (09:34)
[2024-09-14] MEDS: Mineral OiL enema 133 ML ENEMA PR (09:36)
[2024-09-14 09:37] LABS: MANUAL DIFF FLAG NO
[2024-09-14 09:40] LABS: Basophils Percent Auto 0.3 % (0-2); Eosinophils Absolute Auto 0.1 X10*3/uL (0.0-0.4); Eosinophils Percent Auto 1.4 % (0-4); Hematocrit 36.4 % (42.0-52.0); Hemoglobin 11.8 g/dl (14.0-18.0); Imm Gran Abs Auto 0.02 X10*3/uL (0.00-0.03); Imm Gran Pct Auto 0.3 % (0.0-0.4); Lymphocytes Absolute Auto 1.7 X10*3/uL (1.2-4.9); Lymphocytes Percent Auto 26.2 % (20-40); Mean Corpuscular HGB Conc 32.4 g/dl (31.0-36.0); Mean Corpuscular Hemoglobin 23.6 pg (27.0-33.0); Mean Corpuscular Volume 72.8 fL (80.0-98.0); Mean Platelet Volume 9.1 fL (9.4-12.4); Monocytes Absolute Auto 0.4 X10*3/uL (0.1-1.2); Monocytes Percent Auto 6.7 % (2-11); Neutrophils Absolute Auto 4.2 x10*3/uL (2.0-8.3); Neutrophils Percent Auto 65.1 % (45-73); Platelet Count 223 X10*3/uL (160-400); Red Cell Distribution Width 15.7 % (11.0-16.0); White Blood Count 6.5 X10*3/uL (4.8-10.8)
[2024-09-14 09:54] LABS: Alanine Aminotransferase 22 U/L (0-40); Albumin Level 4.2 g/dL (3.5-5.0); Alkaline Phosphatase 57 U/L (39-117); Anion Gap 11 (12-20); Aspartate Amino Transferase 26 U/L (5-37); Bilirubin Direct 0.1 mg/dL (0.0-0.5); Bilirubin Total 0.4 mg/dL (0.0-1.0); Blood Urea Nitrogen 11 mg/dL (9-16); Calcium 8.7 mg/dL (8.4-10.2); Carbon Dioxide 25 mmol/L (22-29); Chloride 106 mmol/L (96-108); Creatinine Clr Calc Pharmacy 137.8; Estimated Glomerular Filt Rate > 60; Glucose Random 100 mg/dL (60-115); Lipase 17 U/L (8-78); Potassium 3.8 mmol/L (3.3-5.1); Sodium 138 mmol/L (135-145)
[2024-09-14 11:31] VITALS: BP 103/64; PULSE 69; RESP 18; TEMP 36.8; O2SAT 99
== END 2024-09-14 11:32 | disposition home or self-care (01) ==
PROVIDERS: Physician Assistant; Emergency Provider Emergency Medicine
DX: K59.00 Constipation, unspecified (principal); F17.210 Nicotine dependence, cigarettes, uncomplicated
CPT/HCPCS: 36415; 80048; 80076; 83690; 83735; 85025; 99284

== ENCOUNTER 2024-12-05 11:10 | Emergency (ER) | payer BC, SELFPAY ==
--- NOTE | ~2024-12-05 | XR_ITS ---
EXAMINATION: XR ABDOMEN 1 VIEW (KUB) HISTORY: pain, constipation COMPARISON: Comparison is made with the prior examination dated 09/13/2024. FINDINGS: Two supine views of the abdomen are submitted. The bowel gas pattern is unremarkable, without evidence of mechanical obstruction. There is a moderate amount of stool throughout the colon. No abnormal calcifications are identified. There are no abnormal soft tissue masses. The bones are intact. XR/XR KUB IMPRESSION: Moderate amount of stool throughout the colon. Electronically signed by: Walker Russ MD 12/05/2024 11:46 AM EDT
--- NOTE | 2024-12-05 11:21 | ED.GENADULT ---
HPI - General Adult General Chief complaint: Abdominal Pain Stated complaint: Stomach Pain Time Seen by Provider: 12/05/24 12:48 Source: patient Mode of arrival: ambulatory Limitations: no limitations History of Present Illness ED Provider: Dr. Larios HPI narrative: 49 year old male on methadone chronic constipation who presents to the ER with abdominal pain and constipation. He has not taken anything for the constipation today takes miralax last dose yesterday but had been a while before then. Denies cough fever chest pain nausea or vomiting. Related Data Home Medications ?Medication ?Instructions ?Recorded ?Confirmed ibuprofen 600 mg tablet 1 tab PO Q6H PRN Pain 09/05/22 09/05/22 lidocaine 5 % topical ointment 1 appl topical Q4H PRN Pain 09/05/22 09/05/22 lidocaine 5 % topical patch 1 patch topical DAILY PRN pain 09/05/22 09/05/22 menthol 0.44 %-zinc oxide 20.6 % 1 appl topical QID PRN Skin 09/05/22 09/05/22 topical ointment (Calmoseptine) Irritation Previous Rx's ?Medication ?Instructions ?Recorded tramadol 50 mg tablet 50 mg PO TID PRN pain #20 tabs 09/01/22 docusate sodium 100 mg capsule 100 mg PO BID #60 caps 09/05/22 (Colace) oxycodone-acetaminophen 5 mg-325 1 tab PO Q4-6H PRN pain #30 tabs 09/05/22 mg tablet (Percocet) polyethylene glycol 3350 17 17 g PO DAILY #119 grams 09/06/22 gram/dose oral powder (Miralax) bacitracin 500 unit/gram topical 1 appl topical BID #30 grams 10/09/22 ointment hydrocodone 5 mg-acetaminophen 325 1 tab PO Q8H PRN pain, severe 3 10/09/22 mg tablet days #5 tabs oxycodone-acetaminophen 5 mg-325 1 tab PO Q8H PRN severe pain 10/11/22 mg tablet (Percocet) (scale score 7-10) #5 tabs polyethylene glycol 3350 17 17 g PO DAILY PRN constipation 09/14/24 gram/dose oral powder (Miralax) #119 grams sodium phosphates 19 gram-7 118 ml NC BEDTIME PRN constipation 09/14/24 gram/118 mL enema (Fleet Enema) #133 mL dicyclomine 10 mg capsule 10 mg PO BID #20 caps 12/05/24 hydrocortisone-pramoxine 2.5 %-1 % 1 appl NC QID PRN hemorrhoids #30 12/05/24 rectal cream (Analpram-HC) grams polyethylene glycol 3350 17 gram 17 g PO BID constipation #100 ea 12/05/24 oral powder packet Allergies Allergy/AdvReac Type Severity Reaction Status Date / Time No Known Allergies Allergy Verified 12/05/24 11:24 Review of Systems Review of Systems: Review of systems: General: Patient denies any fever chills recent illness or falls Musculoskeletal: Denies back pain or body aches or other injuries HEENT: denies headache, runny nose, ear pain Respiratory: denies shortness of breath, cough Cardiovascular: no chest pain or palpitations : denies dysuria, frequency Abdomen: no nausea vomiting denies abdominal pain Extremities: no swelling, no pain Skin: no diaphoresis Yes all other systems are reviewed and are negative PMFSH Past Medical History Medical History Kidney stones External hemorrhoids with complication Anal pain Surgical History History of hemorrhoidectomy (09/05/22) Social History Social History Household Members: Spouse Housing: House Alcohol intake: current Alcohol intake frequency: holidays/special occasions only Patient Tobacco Use Status: Current everyday Tobacco user Tobacco use type: Cigarette Cigarette Packs Per Day: 0.5 Cigarettes Per Day: 10.0 Years Smoked: 20 Second Hand Smoke Exposure: Yes Substance Use Type: Marijuana Advance Directives: Yes Advance Directives on File: Yes Advance Directives Date on File: 09/08/22 Do you have a plan to hurt others: No Plan service: No Current occupational status: employed Physical Exam ED Vital Signs: Vital Signs - 24 hr 12/05/24 11:22 12/05/24 12:30 Temperature 97.5 F 98 F Pulse Rate 85 70 Respiratory Rate 18 18 Blood Pressure 151/90 H 138/84 Pulse Oximetry 100 97 Oxygen Delivery Method Room Air Room Air BMI result Body Mass Index 29.4 General: Well-appearing well-nourished in no signs of distress HEENT: Normocephalic atraumatic Neck: No signs of JVD, no masses no tenderness or lymphadenopathy Cardiovascular: Regular rate and rhythm Respiratory: Clear to auscultation bilaterally Abdomen: Soft nontender no masses rectal exam performed 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 Extremities: Normal pedal pulses no signs of edema Skin: Dry warm no rashes Back: No tenderness full ROM Course Course Course Narrative: RME, this is a rapid medical exam performed by Tim Aguirre please refer to primary provider for complete H&P- 49-year-old male presents for evaluation of abdominal pain constipation. He reports a history of constipation. He has not had value in 2 days. He reports that he is on methadone due to previous history of substance abuse. Plan for labs, KUB. He also complains of palpitations and an EKG will be obtained Reevaluation(s) Reevaluation #1: While the patient was here contemplating getting rectal exam he had a large bowel movement and feeling much better and will go home. Medications Administered Discontinued Medications Generic Name Dose Route Start Last Admin Trade Name Freq PRN Reason Stop Dose Admin Dicyclomine HCl 10 mg 12/05/24 13:16 12/05/24 13:34 Dicyclomine Hcl 10 Mg Capsule PO 12/05/24 13:17 10 mg ONCE ONE Administration Medical Decision Making Medical Decision Making [facility] Narrative: Acute on chronic constipation for the patient we will we can help him with including disimpaction MiraLax he was unsure of what he would like to do patient started pacing in the room and would not tell me he states he does not want getting a disimpaction we will send home with MiraLax twice a day regardless Differential Diagnosis Differential Diagnoses: The differential diagnosis associated with the presentation includes Constipation abdominal pain likely chronic he has a benign abdomen and needs no imaging Lab Data 12/05/24 12:18 12/05/24 12:18 Labs: Lab Results 12/05/24 Range/Units 12:18 WBC 10.0 (4.8-10.8) X10*3/uL RBC 5.30 (4.60-5.80) X10*6/uL Hgb 12.7 L (14.0-18.0) g/dl Hct 39.0 L (42.0-52.0) % MCV 73.6 L (80.0-98.0) fL MCH 24.0 L (27.0-33.0) pg MCHC 32.6 (31.0-36.0) g/dl RDW 16.1 H (11.0-16.0) % Plt Count 232 (160-400) X10*3/uL MPV 9.3 L (9.4-12.4) fL Immature Gran % (Auto) 0.4 (0.0-0.4) % Neut % (Auto) 74.7 H (45-73) % Lymph % (Auto) 17.2 L (20-40) % [place] % (Auto) 6.6 (2-11) % Eos % (Auto) 0.8 (0-4) % Baso % (Auto) 0.3 (0-2) % Lymph # (Auto) 1.7 (1.2-4.9) X10*3/uL [place] # (Auto) 0.7 (0.1-1.2) X10*3/uL Eos # (Auto) 0.1 (0.0-0.4) X10*3/uL Baso # (Auto) 0.0 (0.0-0.2) X10*3/uL Abs Immat Gran (auto) 0.04 H (0.00-0.03) X10*3/uL Absolute Neuts (auto) 7.4 (2.0-8.3) x10*3/uL Absolute Nucleated RBC 0.000 (0.0-0.012) X10*3/uL Nucleated RBC % (auto) 0.0 (0.0-0.2) /100WBC Sodium 139 (135-145) mmol/L Potassium 4.0 (3.3-5.1) mmol/L Chloride 106 (96-108) mmol/L Carbon Dioxide 25 (22-29) mmol/L Anion Gap 12 (12-20) BUN 12 (9-16) mg/dL Creatinine 0.76 (0.5-1.4) mg/dL Estim Creat Clear Calc 129.3 Estimated GFR > 60 Random Glucose 103 (60-115) mg/dL Calcium 9.0 (8.4-10.2) mg/dL Total Bilirubin 0.2 (0.0-1.0) mg/dL AST 21 (5-37) U/L ALT 21 (0-40) U/L Alkaline Phosphatase 61 (39-117) U/L Total Protein 6.6 (6.5-8.0) g/dL Albumin 4.0 (3.5-5.0) g/dL Lipase 18 (8-78) U/L Discharge Plan Discharge Clinical Impression: Constipation Patient Disposition: Home, Self-Care Instructions: Constipation (DC) Additional Instructions: You were seen today for constipation. You should take miralax twice a day until you have nice soft stools. You can take bentyl as needed for pain. If you have any other concerns please return to the ER. Prescriptions: New hydrocortisone-pramoxine [Analpram-HC] 2.5-1 % cream 1 appl NC QID PRN (Reason: hemorrhoids) Qty: 30 0RF polyethylene glycol 3350 17 gram powder in packet 17 g PO BID Qty: 100 0RF dicyclomine 10 mg capsule 10 mg PO BID Qty: 20 0RF No Action tramadol 50 mg tablet 50 mg PO TID PRN (Reason: pain) Qty: 20 0RF ibuprofen 600 mg tablet 1 tab PO Q6H PRN (Reason: Pain) oxycodone-acetaminophen [Percocet] 5-325 mg tablet 1 tab PO Q4-6H PRN (Reason: pain) Qty: 30 0RF Rx Instructions: Partial Fill upon patient request. docusate sodium [Colace] 100 mg capsule 100 mg PO BID Qty: 60 2RF lidocaine 5 % adhesive patch,medicated 1 patch topical DAILY PRN (Reason: pain) menthol-zinc oxide [Calmoseptine] 0.44-20.6 % ointment 1 appl topical QID PRN (Reason: Skin Irritation) lidocaine 5 % ointment 1 appl topical Q4H PRN (Reason: Pain) polyethylene glycol 3350 [Miralax] 17 gram/dose powder 17 g PO DAILY Qty: 119 1RF bacitracin 500 unit/gram ointment 1 appl topical BID Qty: 30 2RF hydrocodone-acetaminophen 5-325 mg tablet 1 tab PO Q8H PRN (Reason: pain, severe) 3 Days Qty: 5 0RF Rx Instructions: Partial Fill upon patient request. oxycodone-acetaminophen [Percocet] 5-325 mg tablet 1 tab PO Q8H PRN (Reason: severe pain (scale score 7-10)) Qty: 5 0RF Rx Instructions: Partial Fill upon patient request. polyethylene glycol 3350 [Miralax] 17 gram/dose powder 17 g PO DAILY PRN (Reason: constipation) Qty: 119 0RF Fleet Enema 19-7 gram/118 mL enema 118 ml NC BEDTIME PRN (Reason: constipation) Qty: 133 0RF Stand Alone Forms: Work/School Release Print Language: Belarusian
[2024-12-05 11:22] VITALS: BP 151/90; PULSE 85; RESP 18; TEMP 36.4; O2SAT 100; BMI 29.4
--- NOTE | 2024-12-05 11:23 | ECG_ITS ---
Test Reason : pakpitations Blood Pressure : */* mmHG Vent. Rate : 72 BPM Atrial Rate : 72 BPM P-R Int : 158 ms QRS Dur : 90 ms QT Int : 396 ms P-R-T Axes : 58 72 52 degrees QTcB Int : 433 ms Normal sinus rhythm Normal ECG When compared with ECG of 13-Sep-2024 14:04, No significant change was found Referred By: Cristian Aguirre Electronically Signed By: VAHE IRVING MD
[2024-12-05 12:23] LABS: Basophils Percent Auto 0.3 % (0-2); Eosinophils Absolute Auto 0.1 X10*3/uL (0.0-0.4); Eosinophils Percent Auto 0.8 % (0-4); Hemoglobin 12.7 g/dl (14.0-18.0); Imm Gran Abs Auto 0.04 X10*3/uL (0.00-0.03); Imm Gran Pct Auto 0.4 % (0.0-0.4); Lymphocytes Absolute Auto 1.7 X10*3/uL (1.2-4.9); Lymphocytes Percent Auto 17.2 % (20-40); MANUAL DIFF FLAG NO; Mean Corpuscular HGB Conc 32.6 g/dl (31.0-36.0); Mean Corpuscular Volume 73.6 fL (80.0-98.0); Mean Platelet Volume 9.3 fL (9.4-12.4); Monocytes Absolute Auto 0.7 X10*3/uL (0.1-1.2); Monocytes Percent Auto 6.6 % (2-11); Neutrophils Absolute Auto 7.4 x10*3/uL (2.0-8.3); Neutrophils Percent Auto 74.7 % (45-73); Platelet Count 232 X10*3/uL (160-400); Red Cell Distribution Width 16.1 % (11.0-16.0)
[2024-12-05 12:30] VITALS: BP 138/84; PULSE 70; RESP 18; TEMP 36.6; O2SAT 97
[2024-12-05 12:44] LABS: Alanine Aminotransferase 21 U/L (0-40); Anion Gap 12 (12-20); Aspartate Amino Transferase 21 U/L (5-37); Bilirubin Total 0.2 mg/dL (0.0-1.0); Blood Urea Nitrogen 12 mg/dL (9-16); Carbon Dioxide 25 mmol/L (22-29); Chloride 106 mmol/L (96-108); Creatinine Clr Calc Pharmacy 129.3; Estimated Glomerular Filt Rate > 60; Glucose Random 103 mg/dL (60-115); Lipase 18 U/L (8-78); Sodium 139 mmol/L (135-145); Total Protein 6.6 g/dL (6.5-8.0)
[2024-12-05 12:48] LABS: Alkaline Phosphatase 61 U/L (39-117)
--- OUTSIDE RECORDS SUMMARY | 2024-12-05 12:59 | XMS_ITS | Clinical Summary ---
Author Organization [facility] it Address [address] [place] [address] Care Team Providers Care Fish Technologist Name Role Phone Unavailable Primary Care Provider Unavailabl e Social History Tobacco Use Types Packs/Day Years Used Date Smoking Tobacco: Never Assessed Sex and Gender Information Value Date Recorded Sex Assigned at Not on file Legal Sex Male 5:36 AM EST Gender Identity Not on file Sexual Orientation Not on file Plan of Treatment Health Maintenance Due Date Last Done Comments DTaP,Tdap,and Td Vaccines (1 - Tdap) 1996 Hepatitis B Vaccines (1 of 3 - 19+ 3-dose series) 1996 Cholesterol Screening (Lipid Panel) 06/29/2022 Colorectal Cancer Screening: Colonoscopy 06/29/2022 Depression Screening 06/29/2022 HIV Screening 06/29/2022 Hepatitis C Screening 06/29/2022 Social Influencers of Health Screening 06/29/2022 COVID-19 Vaccine (2023-2 5 season) 2024 Influenza Vaccine (Season Ended) 2025 HIB Vaccines Aged Out No longer eligi ble based on patient's age to complete this topic HPV Vaccines Aged Out No longer eligi ble based on patient's age to complete this topic Hepatitis A Vaccines Aged Out No long er eligible based on patient's age to complete this topic IPV Vaccines Aged Out No longer eligi ble based on patient's age to complete this topic MMR Vaccines Aged Out No longer eligi ble based on patient's age to complete this topic Meningococcal ACWY Vaccine Aged Out N o longer eligible based on patient's age to complete this topic Meningococcal B Vaccine Aged Out No l onger eligible based on patient's age to complete this topic Pneumococcal Vaccine: Pediat rics (0 to 5 Years) and At-Risk Patients (6 to 64 Years) Aged Out No longer eligible b ased on patient's age to complete this topic RSV Immunization Patients Un richie 20 months Aged Out No longer eligible b ased on patient's age to complete this topic Varicella Vaccines Aged Out No longer eligible based on patient's age to complete this topic
[2024-12-05] MEDS: Dicyclomine HCl 10 MG CAPSULE PO (13:34)
[2024-12-05 13:45] VITALS: BP 138/84; PULSE 70; RESP 18; TEMP 36.6; O2SAT 97
== END 2024-12-05 13:46 | disposition home or self-care (01) ==
PROVIDERS: Physician Assistant; Emergency Provider Student in an Organized Health Care Education/Training Program
DX: K59.00 Constipation, unspecified (principal); R00.2 Palpitations; R10.9 Unspecified abdominal pain; Z79.899 Other long term (current) drug therapy
CPT/HCPCS: 36415; 74018; 80053; 83690; 85025; 93005; 99283

== ENCOUNTER → 2024-12-05 11:22 | Outpatient (BNV) | payer BC, SELFPAY | PROVIDERS: Visit Provider Radiology Diagnostic Radiology | DX: K56.41 Fecal impaction (principal) | CPT/HCPCS: 74018 ==

== ENCOUNTER → 2024-12-05 11:23 | Outpatient (BNV) | payer BC, SELFPAY | PROVIDERS: Emergency Provider Student in an Organized Health Care Education/Training Program; Visit Provider Internal Medicine Cardiovascular Disease | DX: R00.2 Palpitations (principal) | CPT/HCPCS: 93010 ==

== ENCOUNTER 2025-04-10 22:11 | Emergency (ER) | payer BC, SELFPAY ==
[2025-04-10 22:46] VITALS: BP 127/76; PULSE 66; RESP 20; TEMP 36.4; O2SAT 99; BMI 30.4
--- OUTSIDE RECORDS SUMMARY | 2025-04-11 00:36 | XMS_ITS | Clinical Summary ---
Author Organization [facility] it Address [address] [place] [address] Care Team Providers Care Hadoop Analyst Name Role Phone Unavailable Primary Care Provider [...] Panel) 06/29/2022 Colorectal Cancer Screening: Colonoscopy 06/29/2022 HIV Screening 06/29/2022 Hepatitis C Screening 06/29/2022 Social Influencers of Health Screening 06/29/2022 Depression Screening 07/27/2024 COVID-19 Vaccine (2023-2 5 season) 2025 Influenza Vaccine (#1) 2025 HIB Vaccines Aged Out No longer [...] 5 Years) and At-Risk Patients (6 to 49 Years) Aged Out No longer eligible b ased on patient's age to complete this topic RSV Immunization Patients Un richie 20 months Aged Out No longer eligible b ased on patient's age to complete this topic Varicella Vaccines Aged Out No longer eligible based on patient's age to complete this topic
== END 2025-04-11 00:34 | disposition left against medical advice (07) ==
LOC: HO.ED 04-11 00:33
PROVIDERS: Emergency Provider Emergency Medicine
DX: M79.646 Pain in unspecified finger(s) (principal); Z53.21 Procedure and treatment not carried out due to patient leaving prior to being seen by health care provider
CPT/HCPCS: 99281

== ENCOUNTER 2025-04-16 08:15 | Emergency (ER) | payer BC, SELFPAY ==
--- NOTE | ~2025-04-16 | CT_ITS ---
CLINICAL HISTORY: abd pain and vomiting CT abdomen and pelvis without contrast Comparison: CR/SR - XR ABDOMEN 1 VIEW (KUB) - 12/05/24 11:36 EDT Findings: The heart is not enlarged. The lung bases are clear. A right hepatic lobe subcentimeter hypodensity is too small to characterize. The liver is otherwise unremarkable. The gallbladder and other abdominal solid organs are unremarkable. No bowel obstruction. Rectal mural thickening. Normal appendix. The prostate contains punctate calcifications. The urinary bladder is incompletely distended. The right testicle is slightly retracted into the right inguinal canal. Mild degenerative change of the spine and hips. IMPRESSION: 1. Rectal mural thickening, which may be related to nondistention/peristalsis, although correlate for proctitis. No bowel obstruction. 2. Chronic and incidental findings as above. This document has been electronically signed by: Jose Wakefield DO on 04/16/2025 12:04:04
[2025-04-16 08:21] VITALS: BP 129/86; PULSE 83; RESP 24; TEMP 36.8; O2SAT 100; BMI 28.9
[2025-04-16 08:39] VITALS: BP 139/86; PULSE 90; RESP 20; O2SAT 100
--- OUTSIDE RECORDS SUMMARY | 2025-04-16 08:47 | XMS_ITS | Clinical Summary ---
Author Organization [facility] it Address [address] [place] [address] Care Team Providers Care Department Coordinator Name Role Phone Unavailable Primary Care Provider [...]
--- NOTE | 2025-04-16 08:52 | PC.NURSE ---
Addendum entered by Kassidy Gonzales RN 04/16/25 08:53: Patient is a 49 year old male on methadone for the past 4-5 months for opiate use disorder, presents with abdominal pain daily for months. Stated wakes up every morning with this pain and it resolves after one hour. Patient admits to daily marijuana use. Alert and agitated. Upon assessment, patient was found yelling on the floor. Unable to lay in the bed. Noted to be sticking his finger down his throat in order to make himself vomit. Unable to lay still in the stretcher. Lungs clear bilat. Abomen soft with positive bowel sounds. c/o generalized mid abdominal pain. Positive pedal pulses with no edema. Original Note: Medical History Kidney stones External hemorrhoids with complication Anal pain
[2025-04-16 08:57] LABS: MANUAL DIFF FLAG NO
[2025-04-16 09:02] LABS: Hematocrit 40.1 % (42.0-52.0); Hemoglobin 13.3 g/dl (14.0-18.0); Imm Gran Abs Auto 0.06 X10*3/uL (0.00-0.03); Imm Gran Pct Auto 0.4 % (0.0-0.4); Lymphocytes Absolute Auto 1.7 X10*3/uL (1.2-4.9); Mean Corpuscular HGB Conc 33.2 g/dl (31.0-36.0); Mean Corpuscular Hemoglobin 23.8 pg (27.0-33.0); Mean Corpuscular Volume 71.9 fL (80.0-98.0); NRBC Abs Auto 0.000 X10*3/uL (0.0-0.012); NRBC Pct Auto 0.0 /100WBC (0.0-0.2); Platelet Count 281 X10*3/uL (160-400); Red Blood Count 5.58 X10*6/uL (4.60-5.80); White Blood Count 13.5 X10*3/uL (4.8-10.8)
--- NOTE | 2025-04-16 09:09 | ED.NAVMDI ---
HPI - Nausea/Vomiting/Diarrhea General Chief complaint: Nausea/Vomiting/Diarrhea Stated complaint: nausea, vomiting Time Seen by Provider: 04/16/25 08:52 Source: patient and family (Spouse) Mode of arrival: ambulatory Limitations: no limitations History of Present Illness ED Provider: DR. Weiss HPI Narrative: 49-year-old male presented with nausea, vomiting, feeling anxious every morning for 1-2 hours in the morning then after that it resolves and patient continue on with his day, patient admit to smoking regular cigarettes and marijuana every day, no history of intra-abdominal surgery in the past, no history of extensive alcohol drinking. Normal bowel movement with no constipation. No dysuria, no frequency urination, no fever, no chills, no blood in stool, normal bowel movement. Related Data Home Medications ?Medication ?Instructions ?Recorded ?Confirmed ibuprofen 600 mg tablet 1 tab PO Q6H PRN Pain 09/05/22 09/05/22 lidocaine 5 % topical ointment 1 appl topical Q4H PRN Pain 09/05/22 09/05/22 lidocaine 5 % topical patch 1 patch topical DAILY PRN pain 09/05/22 09/05/22 menthol 0.44 %-zinc oxide 20.6 % 1 appl topical QID PRN Skin 09/05/22 09/05/22 topical ointment (Calmoseptine) Irritation Previous Rx's ?Medication ?Instructions ?Recorded tramadol 50 mg tablet 50 mg PO TID PRN pain #20 tabs 09/01/22 docusate sodium 100 mg capsule 100 mg PO BID #60 caps 09/05/22 (Colace) oxycodone-acetaminophen 5 mg-325 1 tab PO Q4-6H PRN pain #30 tabs 09/05/22 mg tablet (Percocet) polyethylene glycol 3350 17 17 g PO DAILY #119 grams 09/06/22 gram/dose oral powder (Miralax) bacitracin 500 unit/gram topical 1 appl topical BID #30 grams 10/09/22 ointment hydrocodone 5 mg-acetaminophen 325 1 tab PO Q8H PRN pain, severe 3 10/09/22 mg tablet days #5 tabs oxycodone-acetaminophen 5 mg-325 1 tab PO Q8H PRN severe pain 10/11/22 mg tablet (Percocet) (scale score 7-10) #5 tabs polyethylene glycol 3350 17 17 g PO DAILY PRN constipation 09/14/24 gram/dose oral powder (Miralax) #119 grams sodium phosphates 19 gram-7 118 ml AR BEDTIME PRN constipation 09/14/24 gram/118 mL enema (Fleet Enema) #133 mL dicyclomine 10 mg capsule 10 mg PO BID #20 caps 12/05/24 hydrocortisone-pramoxine 2.5 %-1 % 1 appl AR QID PRN hemorrhoids #30 12/05/24 rectal cream (Analpram-HC) grams polyethylene glycol 3350 17 gram 17 g PO BID constipation #100 ea 12/05/24 oral powder packet omeprazole 40 mg capsule,delayed 40 mg PO DAILY #14 caps 04/16/25 release ondansetron 4 mg disintegrating 4 mg PO Q8H PRN nausea and 04/16/25 tablet vomiting #10 tabs Allergies Allergy/AdvReac Type Severity Reaction Status Date / Time No Known Allergies Allergy Verified 04/16/25 08:24 Review of Systems Review of Systems: All other systems are reviewed and are negative Constitutional: Reports as per HPI and Reports no additional constitutional complaints Eyes: Reports as per HPI and Reports no additional eye complaints Reports system reviewed and no additional complaints, except as documented Cardiovascular: Reports as per HPI and Reports no additional cardiovascular complaints Respiratory: Reports as per HPI and Reports no additional respiratory complaints Gastrointestinal: Reports as per HPI and Reports no additional gastrointestinal complaints Genitourinary: Reports no additional female genitourinary complaints Musculoskeletal: Reports no additional musculoskeletal complaints Skin/Breast: Reports system reviewed and no additional complaints, except as docu Psychiatric: Reports no additional psychiatric complaints Endocrine: Reports no additional endocrine complaints Hematologic/Lymphatic: Reports no additional hematologic/lymphatic complaints Allergic/Immunologic: Reports no additional allergic/immunologic complaints Reports system reviewed and no additional complaints, except as documented and Reports Abnormal speech present ON LICENSE OF [facility] Past Medical History Medical History Kidney stones External hemorrhoids with complication Anal pain Surgical History History of hemorrhoidectomy (09/05/22) Social History Social History Household Members: Spouse Housing: House Alcohol intake: current Alcohol intake frequency: holidays/special occasions only Patient Tobacco Use Status: Current everyday Tobacco user Tobacco use type: Cigarette Cigarette Packs Per Day: 0.5 Cigarettes Per Day: 10.0 Years Smoked: 20 Smoked in Last 30 Days: Yes Second Hand Smoke Exposure: Yes Substance Use Type: Marijuana Substance Use Frequency: Daily Advance Directives: Yes Advance Directives on File: Yes Advance Directives Date on File: 09/08/22 service: No Current occupational status: employed Physical Exam Vital Signs: Vital Signs: Last Vital Signs Temp 98.2 F 04/16/25 08:21 Pulse 81 04/16/25 12:00 Resp 16 04/16/25 12:00 BP 119/69 04/16/25 12:00 Pulse Ox 99 04/16/25 12:00 O2 Del Method Room Air 04/16/25 12:00 BMI result Body Mass Index 28.9 Vital signs have been reviewed and appear to be correct. Blood pressure elevated. Heart rate normal. Respiratory rate normal. Temperature normal. Oxygen saturation normal. Appearance: Alert. Oriented X3. No acute distress. Head: Normal external exam. Normocephalic. Atraumatic. No Farley signs noted. No raccoon eyes noted Eyes: PERRLA. EOMI. Conjunctiva and sclera normal. Eyelids normal. ENT: TM's Normal. Pharynx normal. Uvula midline. Moist mucous membranes. No trismus noted. No drooling noted. No muffled voice noted. Neck: Normal inspection. Neck supple. FROM. No adenopathy. Thyroid Normal. No meningeal signs. No neck mass noted. CVS: Normal heart rate and rhythm. Heart sound normal. No murmurs noted. Pulses normal throughout. Respiratory: No respiratory distress. Painless inspiration. Breath sounds normal. No wheezes/rales/rhonchi noted. Chest nontender. No accessory muscle usage noted or decreased air movement noted. Abdomen: Soft and nontender. Bowel sounds normal in all 4 quadrants. No distention noted. No organomegaly noted. No visible injury noted. Back: No CVA tenderness. Full range of motion noted. Skin: Skin warm and dry. Normal skin color. Normal skin turgor. No rashes/lesions/lacerations noted. Extremities: No lower extremity edema. Extremities exhibit normal range of motion. Extremities nontender. Neuro: Oriented X 3. Cranial nerve exam: II-XII are grossly intact No motor deficit. No sensory deficit. Reflexes normal. Course Reevaluation(s) Reevaluation #1: 49-year-old male came in for anxiety, nausea, and vomiting, labs reveals leukocytosis which is likely secondary to stress and anxiety, otherwise labs are unremarkable CT of the abdomen and pelvis also showing no acute pathology. Patient's symptoms of every morning nausea and vomiting could be related to a anxiety triggered by marijuana use patient was instructed to give up smoking marijuana will start the patient Prilosec Annika with follow-up with GI. Time: 13:28 Medications Administered Discontinued Medications Generic Name Dose Route Start Last Admin Trade Name Freq PRN Reason Stop Dose Admin Al Hydroxide/Mg Hydroxide 30 ml 04/16/25 09:04 04/16/25 09:29 Magnesium Hydrox/Alum Hydrox 30 Ml Oral.Susp PO 04/16/25 09:05 30 ml ONCE ONE Administration Diazepam 5 mg 04/16/25 09:04 04/16/25 09:29 Diazepam 10 Mg/2 Ml Cartridge IVPUSH 04/16/25 09:05 5 mg STAT STA Administration Droperidol 1.25 mg 04/16/25 10:56 04/16/25 11:03 Droperidol 5 Mg/2 Ml Vial IVPUSH 04/16/25 10:57 1.25 mg ONCE ONE Administration Famotidine 20 mg 04/16/25 09:04 04/16/25 09:29 Famotidine/Pf 20 Mg/2 Ml Vial IVPUSH 04/16/25 09:05 20 mg ONCE ONE Administration Ondansetron HCl 4 mg 04/16/25 09:04 04/16/25 09:29 Ondansetron Hcl 4 Mg/2 Ml Vial IVPUSH 04/16/25 09:05 4 mg ONCE ONE Administration Medical Decision Making Differential Diagnosis Differential Diagnoses: The differential diagnosis associated with the presentation includes (Anxiety, marijuana induced vomiting, acute appendicitis, diverticulitis, kidney stone, UTI, pyelonephritis, gastritis, gastroenteritis, pancreatitis.) Admission/Observation Consideration of admission/observation: Escalation of care including admission/observation considered Lab Data MDM Lab Attestation statement: I reviewed the patient's lab results. 04/16/25 08:50 04/16/25 08:50 Labs: Lab Results 04/16/25 04/16/25 Range/Units 08:50 11:04 WBC 13.5 H (4.8-10.8) X10*3/uL RBC 5.58 (4.60-5.80) X10*6/uL Hgb 13.3 L (14.0-18.0) g/dl Hct 40.1 L (42.0-52.0) % MCV 71.9 L (80.0-98.0) fL MCH 23.8 L (27.0-33.0) pg MCHC 33.2 (31.0-36.0) g/dl RDW 15.6 (11.0-16.0) % Plt Count 281 (160-400) X10*3/uL MPV 9.4 (9.4-12.4) fL Immature Gran % (Auto) 0.4 (0.0-0.4) % Neut % (Auto) 78.3 H (45-73) % Lymph % (Auto) 12.9 L (20-40) % Bennett % (Auto) 7.4 (2-11) % Eos % (Auto) 0.6 (0-4) % Baso % (Auto) 0.4 (0-2) % Lymph # (Auto) 1.7 (1.2-4.9) X10*3/uL Bennett # (Auto) 1.0 (0.1-1.2) X10*3/uL Eos # (Auto) 0.1 (0.0-0.4) X10*3/uL Baso # (Auto) 0.1 (0.0-0.2) X10*3/uL Abs Immat Gran (auto) 0.06 H (0.00-0.03) X10*3/uL Absolute Neuts (auto) 10.6 H (2.0-8.3) x10*3/uL Absolute Nucleated RBC 0.000 (0.0-0.012) X10*3/uL Nucleated RBC % (auto) 0.0 (0.0-0.2) /100WBC Sodium 139 (135-145) mmol/L Potassium 4.1 (3.3-5.1) mmol/L Chloride 107 (96-108) mmol/L Carbon Dioxide 21 L (22-29) mmol/L Anion Gap 15 (12-20) BUN 12 (9-16) mg/dL Creatinine 0.86 (0.5-1.4) mg/dL Estim Creat Clear Calc 113.4 Estimated GFR > 60 Random Glucose 122 H (60-115) mg/dL Calcium 9.5 (8.4-10.2) mg/dL Total Bilirubin 0.4 (0.0-1.0) mg/dL AST 23 (5-37) U/L ALT 22 (0-40) U/L Alkaline Phosphatase 58 (39-117) U/L Total Protein 7.1 (6.5-8.0) g/dL Albumin 4.5 (3.5-5.0) g/dL Lipase 31 (8-78) U/L Urine Color Yellow Urine Appearance Turbid Urine pH >= 9.0 (5.0-9.0) Ur Specific Cl[place]ton 1.020 (1.005-1.025) Urine Protein Trace (Neg-Trace) mg/dL Urine Glucose (UA) Negative (Negative) mg/dL Urine Ketones Negative (Negative) mg/dL Urine Blood Negative (Negative) Urine Nitrite Negative (Negative) Ur Leukocyte Esterase Negative (Negative) Urine Opiates Screen Not Detected (Not Detect) Ur Buprenorphine Scrn Not Detected (Not Detect) ng/mL Ur Oxycodone Screen Not Detected (Not Detect) ng/mL Urine Methadone Screen Positive H (Not Detect) ng/mL Urine Fentanyl Screen Not Detected (Not Detect) Ur Barbiturates Screen Not Detected (Not Detect) Ur Phencyclidine Scrn Not Detected (Not Detect) Ur Amphetamines Screen Not Detected (Not Detect) U Benzodiazepines Scrn Not Detected (Not Detect) Urine Cocaine Screen Not Detected (Not Detect) U Marijuana (THC) Screen POSITIVE H (Not Detect) Independent Interpretation I performed an independent interpretation of an: CT Scan (Abdomen pelvis:1. Rectal mural thickening, which may be related to nondistention/peristalsis, although correlate for proctitis. No bowel obstruction. 2. Chronic and incidental findings as above.) Radiology Impression Discussion of test interpretation with radiology: I have reviewed the radiologist's reading. Discharge Plan Discharge Clinical Impression: Cannabis hyperemesis syndrome concurrent with and due to cannabis abuse Patient Disposition: Home, Self-Care Instructions: Cannabis Use Disorder (ED) Prescriptions: New omeprazole 40 mg capsule,delayed release(DR/EC) 40 mg PO DAILY Qty: 14 0RF ondansetron 4 mg tablet,disintegrating 4 mg PO Q8H PRN (Reason: nausea and vomiting) Qty: 10 0RF No Action tramadol 50 mg tablet 50 mg PO TID PRN (Reason: pain) Qty: 20 0RF ibuprofen 600 mg tablet 1 tab PO Q6H PRN (Reason: Pain) oxycodone-acetaminophen [Percocet] 5-325 mg tablet 1 tab PO Q4-6H PRN (Reason: pain) Qty: 30 0RF Rx Instructions: Partial Fill upon patient request. docusate sodium [Colace] 100 mg capsule 100 mg PO BID Qty: 60 2RF lidocaine 5 % adhesive patch,medicated 1 patch topical DAILY PRN (Reason: pain) menthol-zinc oxide [Calmoseptine] 0.44-20.6 % ointment 1 appl topical QID PRN (Reason: Skin Irritation) lidocaine 5 % ointment 1 appl topical Q4H PRN (Reason: Pain) polyethylene glycol 3350 [Miralax] 17 gram/dose powder 17 g PO DAILY Qty: 119 1RF bacitracin 500 unit/gram ointment 1 appl topical BID Qty: 30 2RF hydrocodone-acetaminophen 5-325 mg tablet 1 tab PO Q8H PRN (Reason: pain, severe) 3 Days Qty: 5 0RF Rx Instructions: Partial Fill upon patient request. oxycodone-acetaminophen [Percocet] 5-325 mg tablet 1 tab PO Q8H PRN (Reason: severe pain (scale score 7-10)) Qty: 5 0RF Rx Instructions: Partial Fill upon patient request. polyethylene glycol 3350 [Miralax] 17 gram/dose powder 17 g PO DAILY PRN (Reason: constipation) Qty: 119 0RF Fleet Enema 19-7 gram/118 mL enema 118 ml AR BEDTIME PRN (Reason: constipation) Qty: 133 0RF hydrocortisone-pramoxine [Analpram-HC] 2.5-1 % cream 1 appl AR QID PRN (Reason: hemorrhoids) Qty: 30 0RF polyethylene glycol 3350 17 gram powder in packet 17 g PO BID Qty: 100 0RF dicyclomine 10 mg capsule 10 mg PO BID Qty: 20 0RF Referrals: Marija Kearney MD [Physician, Gastroenterology] Print Language: [place]
[2025-04-16] MEDS: Magnesium Hydrox/Alum Hydrox 30 ML ORAL.SUSP PO (09:29)
[2025-04-16] MEDS: diazePAM 10 MG/2 ML CARTRIDGE 5 MG IVPUSH (09:29)
[2025-04-16 09:34] LABS: Alanine Aminotransferase 22 U/L (0-40); Albumin Level 4.5 g/dL (3.5-5.0); Alkaline Phosphatase 58 U/L (39-117); Anion Gap 15 (12-20); Aspartate Amino Transferase 23 U/L (5-37); Blood Urea Nitrogen 12 mg/dL (9-16); Calcium 9.5 mg/dL (8.4-10.2); Carbon Dioxide 21 mmol/L (22-29); Chloride 107 mmol/L (96-108); Creatinine Clr Calc Pharmacy 113.4; Estimated Glomerular Filt Rate > 60; Lipase 31 U/L (8-78); Potassium 4.1 mmol/L (3.3-5.1); Sodium 139 mmol/L (135-145); Total Protein 7.1 g/dL (6.5-8.0)
[2025-04-16 10:00] VITALS: BP 120/75; PULSE 78; RESP 20; O2SAT 100
--- NOTE | 2025-04-16 11:05 | PC.NURSE ---
Patient continues to scream and yell, thrashing about in the room. Attempting to vomit by sticking his finger down his throat. No emesis noted.
[2025-04-16 11:17] LABS: Appearance Urine Turbid; Glucose Urine UA Negative (Negative); PH >= 9.0 (5.0-9.0); Specific Gravity - Urine 1.020 (1.005-1.025)
[2025-04-16 11:56] LABS: Cannabinoid Screen Urine POSITIVE (Not Detect)
[2025-04-16 12:00] VITALS: BP 119/69; PULSE 81; RESP 16; O2SAT 99
[2025-04-16 13:50] VITALS: BP 119/69; PULSE 81; RESP 16; TEMP 36.7; O2SAT 99
== END 2025-04-16 13:51 | disposition home or self-care (01) ==
PROVIDERS: Emergency Provider Emergency Medicine
DX: R11.2 Nausea with vomiting, unspecified (principal); F17.210 Nicotine dependence, cigarettes, uncomplicated; F12.90 Cannabis use, unspecified, uncomplicated; R10.2 Pelvic and perineal pain; Z79.899 Other long term (current) drug therapy; Z51.81 Encounter for therapeutic drug level monitoring
CPT/HCPCS: 36415; 74176; 80053; 80307; 81003; 83690; 85025; 96374; 96375; 99284; J1308; J1790; J2405; J3360

== ENCOUNTER → 2025-04-16 09:04 | Outpatient (BNV) | payer BC, SELFPAY | PROVIDERS: Emergency Provider Emergency Medicine; Visit Provider Radiology Diagnostic Radiology | DX: R10.9 Unspecified abdominal pain (principal); R11.10 Vomiting, unspecified | CPT/HCPCS: 74176 ==

== ENCOUNTER 2025-05-18 10:04 | Outpatient (REF) | payer BC, SELFPAY ==
[2025-05-18 13:13] LABS: MANUAL DIFF FLAG NO
[2025-05-18 13:15] LABS: Appearance Urine Clear; Glucose Urine UA Negative (Negative); PH 6.5 (5.0-9.0); Specific Gravity - Urine 1.020 (1.005-1.025); UMIC TRIGGER UACC YES
[2025-05-18 13:23] LABS: Hematocrit 39.7 % (42.0-52.0); Hemoglobin 12.4 g/dl (14.0-18.0); Imm Gran Abs Auto 0.02 X10*3/uL (0.00-0.03); Imm Gran Pct Auto 0.3 % (0.0-0.4); Lymphocytes Absolute Auto 1.8 X10*3/uL (1.2-4.9); Mean Corpuscular HGB Conc 31.2 g/dl (31.0-36.0); Mean Corpuscular Hemoglobin 23.3 pg (27.0-33.0); Mean Corpuscular Volume 74.6 fL (80.0-98.0); NRBC Abs Auto 0.000 X10*3/uL (0.0-0.012); NRBC Pct Auto 0.0 /100WBC (0.0-0.2); Platelet Count 255 X10*3/uL (160-400); Red Blood Count 5.32 X10*6/uL (4.60-5.80); White Blood Count 7.0 X10*3/uL (4.8-10.8)
[2025-05-18 15:13] LABS: CT PCR Urine NOT DETECTED (Not Detect.); NG PCR Urine NOT DETECTED (Not Detect.)
[2025-05-18 18:40] LABS: Alanine Aminotransferase 21 U/L (0-40); Albumin Level 4.4 g/dL (3.5-5.0); Alkaline Phosphatase 60 U/L (39-117); Anion Gap 11 (12-20); Aspartate Amino Transferase 29 U/L (5-37); Blood Urea Nitrogen 14 mg/dL (9-16); Calcium 9.0 mg/dL (8.4-10.2); Carbon Dioxide 24 mmol/L (22-29); Chloride 109 mmol/L (96-108); Cholesterol 178 mg/dL (<200); Estimated Glomerular Filt Rate > 60; HDL Cholesterol 33 mg/dL (>40); Magnesium 2.2 mg/dL (1.6-2.6); Potassium 4.4 mmol/L (3.3-5.1); Sodium 140 mmol/L (135-145); Total Protein 7.0 g/dL (6.5-8.0); Triglycerides 124 mg/dL (<150)
[2025-05-18 19:00] LABS: Folate 6.0 ng/mL (> or = 4.0); Vitamin B12 229 pg/mL (200-900)
[2025-05-19 04:07] LABS: Syphilis Screen Nonreactive (Nonreactive)
[2025-05-19 04:51] LABS: HBS Num1 4.15 mIU/mL (0-7.99); HBsAGNum1 0.35 S/CO (0.00-0.99); HIV Num 1 0.08 S/CO (0.00-0.99); Hepatitis B Surface Antigen Negative (Negative); ~HepC Num1 0.06 S/CO (0.00-0.79); ~Hepatitis B Surface Antibody NONREACTIVE (Nonreactive); ~Hepatitis C Antibody Nonreactive (Nonreactive)
[2025-05-21 12:53] LABS: VITAMIN D (1,25 OH) D3 45 pg/mL; Vit D (1,25-Dihydroxy) Total 45 pg/mL (18-72); Vitamin D (1,25 OH) D2 <8 pg/mL
== END 2025-05-18 10:05 | disposition home or self-care (01) ==
LOC: HO.HKASLDS 10:04
PROVIDERS: PCP Student in an Organized Health Care Education/Training Program; Visit Provider Student in an Organized Health Care Education/Training Program
DX: R11.0 Nausea (principal); K59.00 Constipation, unspecified; E78.00 Pure hypercholesterolemia, unspecified; F11.20 Opioid dependence, uncomplicated; Z13.1 Encounter for screening for diabetes mellitus; F17.210 Nicotine dependence, cigarettes, uncomplicated
CPT/HCPCS: 80053; 80061; 81001; 81003; 82607; 82652; 82746; 83036; 83735; 84443; 85025; 86706; 86780; 86803; 87340; 87389; 87491; 87591; 96127

== ENCOUNTER 2025-05-18 10:04 | Outpatient (AMB) | payer BC, SELFPAY ==
--- NOTE | 2025-05-18 10:08 | A.OFFPC_ITS ---
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 History of Present Illness The patient is a 49-year-old male presenting with nausea, constipation, and the need for preventative care including colon cancer screening. Nausea: The patient reports experiencing nausea every morning, which started after beginning methadone treatment approximately two to three months ago. The nausea is severe enough to disrupt sleep and daily activities, lasting from a few minutes to several hours. The patient has not been taking any medication for nausea as previous treatments worsened the symptoms. Constipation: The patient experiences constipation, which is attributed to methadone use, leading to the use of MiraLAX daily. The constipation has been managed with MiraLAX, taken once daily after the nausea subsides. High Cholesterol: The patient was previously diagnosed with high cholesterol but has not been taking the prescribed medication. Opioid Dependence: The patient has a history of opioid dependence, initially starting with prescribed Percocet and progressing to street-acquired opioids. The patient is currently on methadone maintenance therapy, which began approximately two to three months ago. 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 - Substance use: History of opioid use, currently on methadone maintenance . Review of Systems - Gastrointestinal: Reports nausea every morning, denies vomiting. - Sleep: Reports disrupted sleep due to nausea. 10-point ROS reviewed and negative excep t as noted in HPI Past Medical History - High cholesterol - Opioid dependence Health Maintenance - Colon cancer screening with Cologuard test discussed and planned. Physical Exam General: Well-appearing, in no acute distress. Vital signs: Within normal limits. HEENT: Normocephalic, atraumatic. PERRLA, EOMI. Conjunctiva clear, sclera anicteric. Oropharynx clear, mucous membranes moist. TMs intact bilaterally. Neck: Supple, no lymphadenopathy, no thyromegaly, no JVD or carotid bruits. Cardiovascular: RRR, normal S1/S2, no murmurs, rubs, or gallops. Peripheral pulses 2+ and symmetric. No edema. Respiratory: Lungs clear to auscultation bilaterally, no wheezes, rales, or rhonchi. Normal effort. Abdomen: Soft, non-tender, non-distended. Normoactive bowel sounds. No hepatosplenomegaly, no masses. MSK: Full range of motion, no joint swelling or deformity. Normal gait. Skin: Warm, dry, intact. No rashes, lesions, or pallor. Neuro: Alert and oriented x3. Cranial nerves II-XII intact. Strength 5/5 throu ghout. Sensation intact. Reflexes 2+ symmetric. Normal coordination and gait. Psych: Appropriate mood and affect. Normal judgment and insight. Plan 1. Nausea - Initiate vitamin B6 and vandana candy a s initial management for nausea. - Follow-up in two weeks to assess respo nse to treatment. 2. Constipation - Continue MiraLAX daily for constipatio n management. 3. High Cholesterol - Discussed need for cholesterol managem ent, but patient not currently on medication. 4. Opioid Dependence - Continue methadone maintenance therapy . Discussion Notes I discussed with the patient the management of nausea using vitamin B6 and vandana candy, explaining their potential benefits in controlling symptoms. We also reviewed the options for colon cancer screening, including the Cologuard test, and the logistics involved in each method. The patient was advised to follow up in two weeks to evaluate the effectiveness of the nausea management and to review lab results. Patient Instructions - Take vitamin B6 and vandana candy daily to help manage nausea. - Continue taking MiraLAX daily for cons tipation. - Complete the Cologuard test for colon cancer screening as instructed. - Follow up in two weeks for evaluation and lab results discussion. Medical Decision Making The patient's nausea is likely related to methadone use, and initial management with vitamin B6 and vandana candy was recommended due to their safety and potential efficacy. Constipation is managed with MiraLAX, which is appropriate given the methadone-induced constipation. The decision to use Cologuard for colon cancer screening was based on patient preference and logistical considerations. Total time spent caring for the patient today was 30 minutes. This includes time spent before the visit reviewing the chart, time spent documenting, and time spent reviewing laboratory results, diagnostic imaging, medications, performing a medically necessary evaluation, counseling on diagnoses, care coordination, ordering appropriate tests, ordering appropriate medications, review of tests performed by other providers, reporting test results with the patient, communication with other healthcare providers. COUNTS INCLUDE 234 BEDS AT THE [facility] Medical History Kidney stones External hemorrhoids with complication Anal pain Surgical History History of hemorrhoidectomy (09/05/22) Family History (Updated 05/18/25 @ 10:13 by Afshin Murdock MA) Father No problems noted. Mother No problems noted. Social History Household Members: Spouse Housing: House Alcohol intake: current Alcohol intake frequency: holidays/special occasions only Patient Tobacco Use Status: Current everyday Tobacco user Tobacco use type: Cigarette Cigarette Packs Per Day: 1 Cigarettes Per Day: 10.0 Years Smoked: 20 Second Hand Smoke Exposure: Yes Substance Use Type: Marijuana Advance Directives Date on File: 09/08/22 service: No Current occupational status: employed Cognitive needs: No Hearing needs: No Vision needs: No Questionnaire PHQ-9 Over the last 2 weeks, how often have you been bothered by any of the following problems? 1. Little interest or pleasure in doing things: not at all 2. Feeling down, depressed, or hopeless: not at all 3. Trouble falling or staying asleep, or sleeping too much: several days 4. Feeling tired or having little energy: several days 5. Poor appetite or overeating: several days 6. Feeling bad about yourself - or that you are a failure or have let yourself or your family down: not at all 7. Trouble concentrating on things, such as reading the newspaper or watching t elevision: not at all 8. Moving or speaking so slowly that other people could have noticed. Or the opposite - being so fidgety or restless that you have been moving around a lot more than usual: not at all 9. Thoughts that you would be better off or of hurting yourself in some way: not at all Total score: 3 Depression Screening Interpretation: Negative Depression Screening Done: Yes Source: Developed by Drs. Walker Birmingham, Denise Faith, Dg Coronado and colleagues, with an educational chloe from [employer]. Thrive Questionnaire I am a: Patient What is your living situation today?: I have a steady place to live Within the past 12 months, did the food you bought not last and you didn't have the money to get more?: Never true Within the past 12 months, did you worry whether your food would run out before you got money to buy more?: Never true Do you have trouble paying for medicines?: No Do you have trouble getting transportation to medical appointments?: No Do you have trouble paying your heating and electricity bill?: Yes Do you have trouble taking care of your child, family member or friend?: Yes Are you currently unemployed and looking for a job?: No Are you interested in more education?: Yes Please select the resources that you would like help with: Food, Paying for medicine, Utilities, Childcare, Daily support and Education Currently or been in a relationship where the following occur: No concerns reported THRIVE Score: 1 AUDIT C Alcohol Use Questionnaire (AUDIT-C) 1. How often do you have a drink containing alcohol?: Never Total Score: 0 ESME-7 AMB Questionnaire ESME-7 Feeling nervous, anxious, or on edge: 0 = Not at all Not being able to stop or control worryin = Not at all Worrying too much about different things: 0 = Not at all Trouble relaxin = Not at all Being so restless that it is hard to sit still: 0 = Not at all Becoming easily annoyed or irritable: 0 = Not at all Feeling afraid as if something awful might happen: 0 = Not at all Total ESME-7 score (0-4 normal; 5-9 mild; 10-14 moderate; 15-21 severe): 0 Source: Developed by Drs. aWlker Birmingham, Denise Faith, Dg Coronado and colleagues, with an educational chloe from [employer]. Physical exam (Primary Care) BMI result Body Mass Index 29.4 Tobacco/Smoking Status: Tobacco use Status Patient Tobacco Use Status Current everyday Tobacco 05/18/25 10:08 Tobacco use type Cigarette 05/18/25 10:08 PHQ-9: PHQ-9 Score PHQ-9: Total score 3 05/18/25 10:08 Depression Screening Interpretation: Negative Currently or been in a relationship where the following occur: No concerns reported Coding Level of Care Code New Pt Level 4 (58478) Diagnoses Constipation K59.00 Nausea R11.0 High cholesterol E78.00 Opioid dependence F11.20 Nicotine dependence F17.200 Assessment & Plan Assessment & Plan (1) Constipation: Code(s): K59.00 - Constipation, unspecified (2) Nausea: Code(s): R11.0 - Nausea (3) High cholesterol: Code(s): E78.00 - Pure hypercholesterolemia, unspecified (4) Opioid dependence: Code(s): F11.20 - Opioid dependence, uncomplicated (5) Nicotine dependence: Code(s): F17.200 - Nicotine dependence, unspecified, uncomplicated Plan Orders: Orders Hepatitis B Surface Antigen Today Z13.9 - Encounter for screening, unspecified HIV Ab/Ag Today Z13.9 - Encounter for screening, unspecified Lipid Panel Today Z13.9 - Encounter for screening, unspecified Magnesium Today Z13.9 - Encounter for screening, unspecified UA CC w/rflx Micro + Cult Today Z13.9 - Encounter for screening, unspecified Vitamin D 1,25 dihydroxy Today Z13.9 - Encounter for screening, unspecified Vitamin B12 and Folate Today Z13.9 - Encounter for screening, unspecified Syphilis Screen Today Z13.9 - Encounter for screening, unspecified Complete Blood Count Auto Diff Today Z13.9 - Encounter for screening, unspecified Comprehensive Met. Panel Today Z13.9 - Encounter for screening, unspecified Hemoglobin A1c Today Z13.9 - Encounter for screening, unspecified Hepatitis B Surface Antibody Today Z13.9 - Encounter for screening, unspecified Hepatitis C Antibody Today Z13.9 - Encounter for screening, unspecified TSH reflex Free T4 Today Z13.9 - Encounter for screening, unspecified CT NG by PCR Urine Today Z13.9 - Encounter for screening, unspecified Referrals 2 Cologuard Test Z12.11 - Encounter for screening for malignant neoplasm of colon, Z12.12 - Encounter for screening for malignant neoplasm of rectum Medications: New pyridoxine (vitamin B6) 500 mg PO DAILY 30 tabs 0RF Discontinued docusate sodium (Colace) Discontinued Reason: Doctor's Order 100 mg PO BID 60 caps 2RF bacitracin Discontinued Reason: Doctor's Order 1 appl topical BID 30 grams 2RF sodium phosphates 19-7 gram/118 mL (Fleet Enema) Discontinued Reason: Doctor's Order 118 mL [place] BEDTIME PRN 133 mL 0RF constipation hydrocortisone-pramoxine 2.5-1 % (Analpram-HC) Discontinued Reason: Doctor's Order 1 appl [place] QID PRN 30 grams 0RF hemorrhoids omeprazole Discontinued Reason: Doctor's Order 40 mg PO DAILY 14 caps 0RF polyethylene glycol 3350 (Miralax) Discontinued Reason: Doctor's Order 17 grams PO DAILY PRN 119 grams 0RF constipation dicyclomine Discontinued Reason: Doctor's Order 10 mg PO BID 20 caps 0RF polyethylene glycol 3350 Discontinued Reason: Doctor's Order 17 grams PO BID 100 ea 0RF constipation ondansetron Discontinued Reason: Doctor's Order 4 mg PO Q8H PRN 10 tabs 0RF nausea and vomiting
[2025-05-18 10:15] VITALS: BP 135/83; PULSE 72; RESP 16; TEMP 36.4; O2SAT 97; BMI 29.4
--- OUTSIDE RECORDS SUMMARY | 2025-05-18 11:48 | XMS_ITS | Clinical Summary ---
Author Organization [facility] it Address [address] [place] [address] Care Team Providers Care Video Manager Name Role Phone Unavailable Primary Care Provider Unavailabl e Social History Tobacco Use Types Packs/Day Years Used Date Smoking Tobacco: Never Assessed Sex and Gender Information Value Date Recorded Sex Assigned at Not on file Legal Sex Male 5:36 AM EST Gender Identity Not on file Sexual Orientation Not on file Plan of Treatment Health Maintenance Due Date Last Done Comments Colorectal Cancer Screening: Colonoscopy 1977 DTaP,Tdap,and Td Vaccines (1 - Tdap) 1996 Hepatitis B Vaccines (1 of 3 - 19+ 3-dose series) 1996 Cholesterol Screening (Lipid Panel) 06/29/2022 HIV Screening 06/29/2022 Hepatitis C Screening 06/29/2022 Social Influencers of Health Screening 06/29/2022 Depression Screening 07/27/2024 COVID-19 Vaccine (1 - 2023-2 5 season) 2025 Influenza Vaccine (#1) 2025 RSV Immunization Adult Patie nts (1 - 1-dose 75+ series) 2052 HIB Vaccines Aged Out No longer eligi [...]
== END 2025-05-18 10:48 | disposition home or self-care (01) ==
LOC: HO.HMCFMS 10:05
PROVIDERS: Visit Provider Student in an Organized Health Care Education/Training Program
DX: K59.00 Constipation, unspecified (principal); R11.0 Nausea; E78.00 Pure hypercholesterolemia, unspecified; F11.20 Opioid dependence, uncomplicated; F17.200 Nicotine dependence, unspecified, uncomplicated

== ENCOUNTER 2025-05-31 11:26 | Outpatient (AMB) | payer BC, SELFPAY ==
--- NOTE | 2025-05-31 11:28 | A.OFFPC_ITS ---
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 Accompanied by: Self / Same As Patient Allergies No Known Allergies Allergy (Verified 05/31/25 11:29) Medication List - Last Reconciled 05/31/25 by Donny Mcdermott MD hydroxyzine HCl 50 mg PO BEDTIME methadone 35 mg PO DAILY polyethylene glycol 3350 (Miralax) 17 grams PO DAILY pyridoxine (vitamin B6) 500 mg PO DAILY Tobacco use date assessed: 05/31/25 Dental Screening Dental Screen Date: 05/31/25 Did you have a dental visit in the last 12 months?: Yes Did you have a dental problem in the last 6 months where you did not have access to dental care?: Yes Was dental information given to patient?: No HPI HPI Comments History of Present Illness Details History of Present Illness The patient is a 49-year-old male presenting with a request for medication to manage situational anxiety related to an upcoming flight. Situational anxiety: The patient reports a new onset of severe anxiety related to flying, which he has not experienced before. He recently experienced an episode of severe anxiety with shaking on a plane, which prompted him to deplane before takeoff. He states this occurred even after taking an clonidine anxiety medication he had at home, which he felt was ineffective. The patient attributes this acute anxiety to significant emotional stress regarding his uncle's critical illness. He is requesting medication to manage his symptoms for a rescheduled flight. Medications: - patient took clonidine which was pre scribed to him by the [facility]one Center for his anxiety when initiating methadone which was taken prior to a flight with no effect. - Rekha candy and vitamin B6 for nause a Social History: - The patient is experiencing significan t emotional distress and grief due to his uncle's critical illness, with whom he shares a very close relationship. - He has an upcoming flight. Family History: - Uncle is critically ill with a conditi on that caused significant fluid accumulation requiring drainage of two liters. Past Medical History - Anxiety, per patient report of having medication at home. Health Maintenance [facility] Medical History (Updated 05/31/25 @ 12:14 by Donny Mcdermott MD) Methadone use Kidney stones External hemorrhoids with complication Anal pain Surgical History History of hemorrhoidectomy (09/05/22) Family History Father No problems noted. Mother No problems noted. Social History Household Members: Spouse Housing: House Alcohol intake: current Alcohol intake frequency: holidays/special occasions only Patient Tobacco Use Status: Current everyday Tobacco user Tobacco use type: Cigarette Cigarette Packs Per Day: 1 Cigarettes Per Day: 10.0 Years Smoked: 20 Second Hand Smoke Exposure: Yes Substance Use Type: Marijuana Advance Directives Date on File: 09/08/22 service: No Current occupational status: employed Cognitive needs: No Hearing needs: No Vision needs: No Questionnaire Thrive Questionnaire Date Thrive assessed: 05/18/25 I am a: Patient What is your living situation today?: I have a steady place to live Within the past 12 months, did the food you bought not last and you didn't have the money to get more?: Never true Within the past 12 months, did you worry whether your food would run out before you got money to buy more?: Never true Do you have trouble paying for medicines?: No Do you have trouble getting transportation to medical appointments?: No Do you have trouble paying your heating and electricity bill?: Yes Do you have trouble taking care of your child, family member or friend?: Yes Are you currently unemployed and looking for a job?: No Are you interested in more education?: Yes Currently or been in a relationship where the following occur: No concerns reported THRIVE Score: 1 Review of Systems Narrative Review of Systems - Psychiatric: Reports feeling anxious and experiencing significant stress. - Neurological: Reports shaking during a recent anxiety episode. 10-point ROS reviewed and negative except as noted in HPI Physical exam (Primary Care) Tobacco/Smoking Status: Tobacco use Status Tobacco use date assessed 05/18/25 05/29/25 14:14 Patient Tobacco Use Status Current everyday Tobacco 05/29/25 14:14 Tobacco use type Cigarette 05/29/25 14:14 Thrive Assessment: Date of Thrive Assessment Date Thrive assessed 05/18/25 05/31/25 11:27 Currently or been in a relationship where the following occur: No concerns reported Narrative Physical Exam General: Well-appearing, in no acute distress. Vital signs: Within normal limits. HEENT: Normocephalic, atraumatic. PERRLA, EOMI. Conjunctiva clear, sclera anicteric. Oropharynx clear, mucous membranes moist. TMs intact bilaterally. Neck: Supple, no lymphadenopathy, no thyromegaly, no JVD or carotid bruits. Cardiovascular: RRR, normal S1/S2, no murmurs, rubs, or gallops. Peripheral pulses 2+ and symmetric. No edema. Respiratory: Lungs clear to auscultation bilaterally, no wheezes, rales, or rhonchi. Normal effort. Abdomen: Soft, non-tender, non-distended. Normoactive bowel sounds. No hepatosplenomegaly, no masses. MSK: Full range of motion, no joint swelling or deformity. Normal gait. Skin: Warm, dry, intact. No rashes, lesions, or pallor. Neuro: Alert and oriented x3. Cranial nerves II-XII intact. Strength 5/5 throughout. Sensation intact. Reflexes 2+ symmetric. Normal coordination and gait. Psych: Anxious mood, appropriate affect. Normal judgment and insight. Coding Level of Care Code Est Pt Level 3 (54215) Diagnoses Methadone use F11.90 Anxiety with flying F40.243 Assessment & Plan Assessment & Plan (1) Methadone use: Code(s): F11.90 - Opioid use, unspecified, uncomplicated Category: Medical (2) Anxiety with flying: Code(s): F40.243 - Fear of flying Plan Consent Patient was informed and verbally consented to the use of an ambient scribe for clinic note documentation during this visit. Plan 1. Situational Anxiety - Hydroxyzine 50 mg was prescribed. - The patient was instructed to take one 50 mg tablet 30 minutes to 1 hour before the flight. - It was explained that the medication's onset of action is in 30 minutes and it reaches peak effect at 1 hour. - If the effect wears off, the patient was advised he can take an additional 25 mg (half of a 50 mg tablet) after 4 to 6 hours. - A follow-up visit was scheduled for approximately one month from now. Discussion Notes I discussed with the patient that his acute anxiety is likely triggered by the significant stress from his uncle's severe illness. To manage his symptoms for an upcoming flight, I prescribed Hydroxyzine 50 mg, explaining that he should take it 30 to 60 minutes before flying for optimal effect, as it peaks at one hour. I advised that if the medication wears off, a repeat dose of 25 mg can be taken after 4-6 hours. We agreed to a follow-up visit in about one month. Patient Instructions - You have been prescribed Hydroxyzine 50 mg for anxiety related to flying. - Take one 50 mg tablet 30 minutes to one hour before your flight. - If the medicine seems to wear off, you may take half of a tablet (25 mg) after 4 to 6 hours. - Please schedule a follow-up appointment in about one month. Medical Decision Making The patient is a 49-year-old male with a new onset of severe situational anxiety related to flying, which appears to be an acute stress reaction to his uncle's critical illness. He experienced a significant anxiety episode on a plane, leading him to disembark, despite taking an ineffective dose of clonidine he h ad at home. Given his need to fly soon, a short-acting anxiolytic is indicated to provide symptomatic relief and allow him to travel. I have prescribed Hydroxyzine 50 mg, an antihistamine with sedative properties, as a safe, non-controlled substance to manage his acute symptoms. The plan is to take one dose 30-60 minutes before the flight, with an option for a smaller, subsequent dose if needed, balancing efficacy with safety. This approach addresses his immediate need while avoiding the risks associated with benzodiazepines. Total time spent caring for the patient today was 20 minutes. This includes time spent before the visit reviewing the chart, time spent documenting, and time spent reviewing laboratory results, diagnostic imaging, medications, performing a medically necessary evaluation, counseling on diagnoses, care coordination. Medications: New hydroxyzine HCl 50 mg PO BEDTIME 10 tabs 0RF
[2025-05-31 11:29] VITALS: BP 124/85; PULSE 71; RESP 16; TEMP 36.5; O2SAT 98; BMI 29.0
--- OUTSIDE RECORDS SUMMARY | 2025-05-31 14:00 | XMS_ITS | Clinical Summary ---
Author Organization [facility] it Address [address] [place] [address] Care Team Providers Care Chain Offbearer Name Role Phone Unavailable Primary Care Provider [...] Screening 06/29/2022 Depression Screening 07/27/2024 COVID-19 Vaccine ( - 2023-2 5 season) 2025 Influenza Vaccine [...]
== END 2025-05-31 11:55 | disposition home or self-care (01) ==
LOC: HO.HMCFMS 11:27
PROVIDERS: PCP Student in an Organized Health Care Education/Training Program; Visit Provider Student in an Organized Health Care Education/Training Program
DX: F11.90 Opioid use, unspecified, uncomplicated (principal); F40.243 Fear of flying

== ENCOUNTER 2025-06-13 09:40 | Outpatient (AMB) | payer BC, SELFPAY ==
--- NOTE | 2025-06-13 09:43 | MHC.PC.OV ---
Vital Signs 06/13/25 09:47 Height 5 ft 8.9 in Weight 198 lb 4 oz BMI 29.4 BP 109/60 Blood Pressure Location Lt brachial Position Sitting Respiration 18 Pulse 71 Pulse Source Monitor Temp 98 F Temp Source Oral Pulse Oximetry (%) 97 Oxygen Delivery Method Room Air Intake Visit Reasons: EP - Lab Results Intake Note: lab results Multiple Spindle Router Operator Required: No Multiple Spindle Router Operator Name: Rosa Stoner speak danish Allergies No Known Allergies Allergy (Verified 06/13/25 09:45) Tobacco use date assessed: 05/31/25 Dental Screening Dental Screen Date: 05/31/25 HPI HPI Comments History of Present Illness Details History of Present Illness The patient is a 49-year-old male presenting for review of laboratory results. Anxiety: The patient was prescribed medication for anxiety related to flying but reports he did not need it for a recent trip. He took one dose one hour before the first flight and felt more relaxed but did not require further doses for the remainder of the travel. Anemia: Recent lab results indicate the patient is slightly anemic with low iron. Dyslipidemia: Lab results show an elevated LDL cholesterol of 121 mg/dL and a low HDL cholesterol of 33 mg/dL, while his total cholesterol is within the normal range at 178 mg/dL. Vitamin B12 deficiency: The patient's Vitamin B12 level is 229, which is at the lower end of the normal range. His vitamin D, folate, and thyroid levels are normal. Microscopic Hematuria: Urinalysis revealed trace blood in the urine, a finding the patient has not been told about before. He has a history of kidney stones. The patient denies any history of surgeries on his kidneys or prostate. Health Maintenance: The patient recently submitted a stool sample for Cologuard screening, and results are pending. Screenings for syphilis, chlamydia, hepatitis C, and HIV were negative. Surgical History: - Denies history of surgeries on the kidneys or prostate. Medications: - Vitamin B6 - Methadone - MiraLAX, as needed Social History: - Substance Use: The patient is taking methadone. - Nutrition: Advised to decrease consumption of cheese, eggs, and animal fats, and to increase consumption of greens and vegetables. Diagnostic Results: - Labs: Recent results show the patient is slightly anemic with low iron. - Labs: Sodium, potassium, kidney function, and liver function are great. - Labs: Total cholesterol is 178 mg/dL. - Labs: LDL cholesterol is 121 mg/dL, which is elevated. - Labs: HDL cholesterol is 33 mg/dL, which is low. - Labs: Vitamin B12 is 229. - Labs: Vitamin D, folate, and thyroid levels are good. - Tests and Diagnostics: Urinalysis shows trace blood. - Tests and Diagnostics: Syphilis, Chlamydia, Hepatitis C, and HIV are negative. - Tests and Diagnostics: Cologuard test has been sent out with results pending. Past Medical History - Nephrolithiasis - Methadone use Health Maintenance - Awaiting results from the Cologuard test. - Recommended follow-up in six months to review progress. [facility] Medical History (Updated 06/13/25 @ 10:30 by Donny Mcdermott MD) History of nephrolithiasis Microscopic hematuria Low vitamin B12 level Dyslipidemia Iron deficiency anemia Methadone use Kidney stones External hemorrhoids with complication Anal pain Surgical History History of hemorrhoidectomy (09/05/22) Family History Father No problems noted. Mother No problems noted. Social History Household Members: Spouse Housing: House Alcohol intake: current Alcohol intake frequency: holidays/special occasions only Patient Tobacco Use Status: Current everyday Tobacco user Tobacco use type: Cigarette Cigarette Packs Per Day: 1 Cigarettes Per Day: 10.0 Years Smoked: 20 Second Hand Smoke Exposure: Yes Substance Use Type: Marijuana Advance Directives Date on File: 09/08/22 service: No Current occupational status: employed Cognitive needs: No Hearing needs: No Vision needs: No Questionnaire Thrive Questionnaire Date Thrive assessed: 05/18/25 I am a: Patient What is your living situation today?: I have a steady place to live Within the past 12 months, did the food you bought not last and you didn't have the money to get more?: Never true Within the past 12 months, did you worry whether your food would run out before you got money to buy more?: Never true Do you have trouble paying for medicines?: No Do you have trouble getting transportation to medical appointments?: No Do you have trouble paying your heating and electricity bill?: Yes Do you have trouble taking care of your child, family member or friend?: Yes Are you currently unemployed and looking for a job?: No Are you interested in more education?: Yes Currently or been in a relationship where the following occur: No concerns reported THRIVE Score: 1 Review of Systems Narrative Review of Systems - Genitourinary: Reports history of kidney stones. - Psychiatric: Reports feeling more relaxed after taking medication for flight-related anxiety. 10-point ROS reviewed and negative except as noted in HPI Physical exam (Primary Care) Vital Signs: Last Vital Signs Temp 98 F 06/13/25 09:47 Pulse 71 06/13/25 09:47 Resp 18 06/13/25 09:47 BP 109/60 06/13/25 09:47 Pulse Ox 97 06/13/25 09:47 Oxygen Delivery Method Room Air 06/13/25 09:47 BMI result Body Mass Index 29.4 Tobacco/Smoking Status: Tobacco use Status Tobacco use date assessed 05/31/25 06/13/25 09:44 Patient Tobacco Use Status Current everyday Tobacco 06/13/25 09:44 Tobacco use type Cigarette 06/13/25 09:44 Thrive Assessment: Date of Thrive Assessment Date Thrive assessed 05/18/25 06/13/25 09:44 Currently or been in a relationship where the following occur: No concerns reported Narrative Physical Exam General: Well-appearing, in no acute distress. Vital signs: Within normal limits. HEENT: Normocephalic, atraumatic. PERRLA, EOMI. Conjunctiva clear, sclera anicteric. Oropharynx clear, mucous membranes moist. TMs intact bilaterally. Neck: Supple, no lymphadenopathy, no thyromegaly, no JVD or carotid bruits. Cardiovascular: RRR, normal S1/S2, no murmurs, rubs, or gallops. Peripheral pulses 2+ and symmetric. No edema. Respiratory: Lungs clear to auscultation bilaterally, no wheezes, rales, or rhonchi. Normal effort. Abdomen: Soft, non-tender, non-distended. Normoactive bowel sounds. No hepatosplenomegaly, no masses. MSK: Full range of motion, no joint swelling or deformity. Normal gait. Skin: Warm, dry, intact. No rashes, lesions, or pallor. Neuro: Alert and oriented x3. Cranial nerves II-XII intact. Strength 5/5 throughout. Sensation intact. Reflexes 2+ symmetric. Normal coordination and gait. Psych: Appropriate mood and affect. Normal judgment and insight. Coding Level of Care Code Est Pt Level 3 (80212) Diagnoses Iron deficiency anemia D50.9 Dyslipidemia E78.5 Low vitamin B12 level R79.89 Microscopic hematuria R31.29 History of nephrolithiasis Z87.442 Methadone use F11.90 Assessment & Plan Assessment & Plan (1) Iron deficiency anemia: Code(s): D50.9 - Iron deficiency anemia, unspecified Category: Medical (2) Dyslipidemia: Code(s): E78.5 - Hyperlipidemia, unspecified Category: Medical (3) Low vitamin B12 level: Code(s): R79.89 - Other specified abnormal findings of blood chemistry Category: Medical (4) Microscopic hematuria: Code(s): R31.29 - Other microscopic hematuria Category: Medical (5) History of nephrolithiasis: Code(s): Z87.442 - Personal history of urinary calculi Category: Medical (6) Methadone use: Code(s): F11.90 - Opioid use, unspecified, uncomplicated Category: Medical Plan Consent Patient was informed and verbally consented to the use of an ambient scribe for clinic note documentation during this visit. Plan 1. Iron Deficiency Anemia - Will start iron supplementation. - Instructed to take iron with vitamin C. - Advised to take iron one hour before meals or two hours after meals. - Patient counseled that iron may cause constipation and dark stools. - A prescription for MiraLAX with three refills was placed to manage potential constipation. 2. Dyslipidemia - Recommended dietary modifications, including reducing intake of cheese, eggs, and animal fats, while increasing consumption of greens and vegetables. - Will not initiate medication for dyslipidemia at this time. 3. Vitamin B12 Deficiency - A 90-day supply of daily Vitamin B12 (cyanocobalamin) was prescribed for supplementation. 4. Microscopic Hematuria - Plan to repeat the urinalysis in three months. Discussion Notes I reviewed the patient's recent lab work. We discussed his mild anemia and low iron, and I prescribed iron supplements, advising him to take it with vitamin C and explaining it should be taken one hour before or two hours after eating. I warned him about the potential for constipation and dark stools, and I sent a prescription for MiraLAX to manage this. We also discussed his dyslipidemia, noting his LDL is 121 and HDL is 33. I advised dietary changes, including cutting down on cheese, eggs, and animal fats while increasing greens and vegetables, and noted we will not start medication at this time. His vitamin B12 was low-normal at 229, so I prescribed a daily supplement. The urinalysis showed trace blood, which he had no prior history of. Given his history of kidney stones, this is likely related, but we will repeat the test in three months to confirm. I confirmed his screenings for syphilis, chlamydia, hepatitis C, and HIV were all negative. We will await the Cologuard results and plan to follow up in six months. Patient Instructions - Start taking an iron supplement. Take it with Vitamin C, one hour before you eat or two hours after you eat. - Be aware that the iron supplement may cause constipation and may make your stool dark in color. This is normal. - A prescription for MiraLAX has been sent to the pharmacy to help with any constipation. - To help with your cholesterol, try to eat fewer fatty foods like cheese and eggs, and eat more greens and vegetables. - Start taking one Vitamin B12 pill every day. A prescription has been sent to your pharmacy. - We will recheck your urine in three months. - Please schedule a follow-up appointment in six months. Medical Decision Making The patient is a 49-year-old male on methadone who presents for a review of his laboratory results. Lab work revealed a mild anemia with low iron, for which iron supplementation with vitamin C is indicated. Due to the common side effect of constipation with iron, particularly in a patient already on methadone, prophylactic MiraLAX was also prescribed. His lipid panel showed an LDL of 121 mg/dL and a low HDL of 33 mg/dL. Given that his total cholesterol is within normal limits, initiating pharmacotherapy is not warranted at this time; lifestyle and dietary modification is the most appropriate first step. His vitamin B12 level of 229 is at the low end of the normal range, and daily supplementation is a low-risk intervention to prevent future symptomatic deficiency. The finding of trace blood in the urine, in the context of his history of kidney stones, is likely benign. However, to ensure there is no other underlying pathology, a repeat urinalysis in three months is a prudent measure. STI screenings were negative, and we are awaiting the results of his Cologuard test. Follow-up is scheduled for six months to reassess. Total Time Statement 20 min Total time spent caring for the patient today includes pre-visit chart review, documentation, review of laboratory and diagnostic imaging results, medication reconciliation, medically necessary evaluation, counseling on diagnoses, care coordination, ordering appropriate tests and medications, review of tests performed by other providers, reporting test results to the patient, and communication with other healthcare providers. Medications: New ascorbic acid (vitamin C) 500 mg PO DAILY 90 tabs 0RF cyanocobalamin (vitamin B-12) 1,000 mcg PO DAILY 90 tabs 0RF ferrous sulfate 325 mg PO DAILY 90 tabs 0RF D50.9 - Iron deficiency anemia, unspecified Refilled polyethylene glycol 3350 (Miralax) 17 grams PO DAILY 476 grams 3RF
[2025-06-13 09:47] VITALS: BP 109/60; PULSE 71; RESP 18; TEMP 36.6; O2SAT 97; BMI 29.4
== END 2025-06-13 10:07 | disposition home or self-care (01) ==
LOC: HO.HMCFMS 09:41
PROVIDERS: PCP Student in an Organized Health Care Education/Training Program; Visit Provider Student in an Organized Health Care Education/Training Program
DX: D50.9 Iron deficiency anemia, unspecified (principal); E78.5 Hyperlipidemia, unspecified; R79.89 Other specified abnormal findings of blood chemistry; R31.29 Other microscopic hematuria; Z87.442 Personal history of urinary calculi; F11.90 Opioid use, unspecified, uncomplicated